=== PATIENT | female | born 1955 | race Caucasian/White ===

== ENCOUNTER 2018-10-23 06:16 | Inpatient (IN) ==
--- NOTE | 2018-10-05 09:12 | Anesthesiology Consultation ---
Date of Service October 05, 2018 Assessment & Plan (1) Encounter for pre-operative examination: Chart Review Chart Review: Acceptable Risk for Surgery and Patient seen in Pre Admission Testing Consults Requested none Teaching & Discussion Pre-Anesthesia Teaching/Discussion Notes: Instructed NPO after midnight before surgery, except medications with 15 cc of water. Medication instructions provided according to the PAT guidelines. History Surgery Operation Date: 10/23/18 12:30 Proposed Procedures p Right Total Hip Arthroplasty - Kam Lopez MD Height/Weight Height: 5 ft 7 in Weight: 69.2 kg Allergies Allergy/AdvReac Type Severity Reaction Status Date / Time codeine AdvReac unknown - Verified 09/28/18 11:41 as child Medications Home Medications Medication Instructions Recorded Confirmed Last Taken albuterol sulfate [Ventolin HFA] 2 puff INHALATION Q6H PRN 09/28/18 09/28/18 Unknown anastrozole 1 mg PO QAM 09/28/18 09/28/18 Unknown calcium carbonate-vitamin D3 1 cap PO QAM 09/28/18 09/28/18 Unknown [Calcium 600 + D(3)] Past Medical History Medical History HX: breast cancer left - had radiation 2011 History of hysterectomy Non-allergic rhinitis Osteoarthritis Exercise / Class Metabolic Activity II 4-5 Yardwork/Stairs/Walk up hill (Able to climb FOS with some difficulty. D enies CP or SOB. ) Past Family History Family History Mother Family history of diabetes mellitus Past Surgical History Surgical History History of appendectomy History of bunionectomy of left great toe History of colonoscopy History of lumpectomy of left breast Hx of cholecystectomy Hx of shoulder surgery to remove lump that was growing Hx of tonsillectomy Nausea and vomiting after administration of anesthetic agent Past Anesthesia History No Hx of Anesthesia Complications and No Family Hx of Anesthesia Complications History of PONV History of PONV and Hx of Motion Sickness Social History Smoking Status: Never smoker Do You Dip or Chew Tobacco: No Hx Alcohol Use: No Hx Substance Use: No Review of Systems Patient denies chest pain, shortness of breath, dyspnea on exertion, reflux, cough, wheezing, palpitations. +Joint Pain (Hip, Knees) +Wheezing (occasionally - thought to be secondary to damage from radiation) Physical Exam Vital Signs BP: 108/72 P: 74 R: 16 T: 98.1 SPO2: 96% on RA ENMT Thyromental Distance: > or= 3.5 Finger Breadths (3.5) Mallampati Class: I Neck normal visual inspection, trachea midline and + limited neck extension (mild limitation) Respiratory normal respiratory effort Auscultation: lungs clear to auscultation bilaterally Cardiovascular Rate/Rhythm: regular rate and regular rhythm Heart Sounds: no murmur Vessels: no carotid bruit Neurologic moves all extremities Psychiatric Orientation: alert and oriented x 3 Testing Laboratory Results 10/05/18 09:45 10/05/18 09:45 PT 11.2 Seconds (9.0-12.0) 10/05/18 09:45 INR 1.1 (0.9-1.1) 10/05/18 09:45 APTT 35.1 Seconds (21.0-31.0) H 10/05/18 09:45 Blood Type A Positive 10/05/18 09:45 Antibody Screen NEGATIVE 10/05/18 09:45 Electrocardiogram Date: 10/05/18 Findings: + NSR @ (61) Chest X-Ray Date: 10/05/18 Findings: + NAD
--- NOTE | 2018-10-05 09:16 | PAT Medication Instructions ---
Medication Instructions Date of Service October 05, 2018 Home Medications albuterol sulfate [Ventolin HFA] 2 puff INHALATION Q6H NEEDED anastrozole 1 mg PO QAM calcium carbonate-vitamin D3 [Calcium 600 + D(3)] 1 cap PO QAM DO NOT take the morning of surgery calcium carbonate-vitamin D3 [Calcium 600 + D(3)] 1 cap PO QAM Take morning of surgery With a small sip of water, OTHERWISE NOTHING TO EAT OR DRINK AFTER MIDNIGHT: albuterol sulfate [Ventolin HFA] 2 puff INHALATION Q6H NEEDED (if needed; bring to hospital) anastrozole 1 mg PO QAM Take evening before surgery albuterol sulfate [Ventolin HFA] 2 puff INHALATION Q6H NEEDED (if needed) Other Notes If you have any questions please call us at [phone] or [phone] or [phone] or [phone]
--- NOTE | 2018-10-05 10:04 | XRay Report ---
XR chest Pre-admission PA/Lat CLINICAL HISTORY: pat preoperative evaluation COMPARISON STUDY: No previous studies for comparison. FINDINGS: The bones soft tissues and hemidiaphragms are normal. The cardiomediastinal silhouette is n ormal. The lungs are clear. The pulmonary vasculature is normal. IMPRESSION: Negative chest. The above report was generated using voice recognition software. It may contain grammatical, syntax or spelling errors. Electronically signed by: Terry Sims M.D. 10/05/2018 10:03 AM
[2018-10-05 11:17] LABS: Basophils # (auto) 0.01 K/uL (0-0.2); Basophils % (auto) 0.2 %; Eosinophils # (auto) 0.39 K/uL (0-0.5); Eosinophils % (auto) 6.8 %; Hematocrit (blood only) 41.4 % (37-47); Hemoglobin 13.2 g/dL (12.0-16.0); Lymphocytes # (auto) 1.62 K/uL (1.2-3.4); Lymphocytes % (auto) 28.2 %; Mean Corpuscular Hgb Conc 31.9 g/dL (32-36); Mean Corpuscular Volume 91.8 fL (80-100); Mean Platelet Volume 10.9 fL (7.4-10.4); Monocytes % (auto) 5.2 %; Neutrophils # (auto) 3.42 K/uL (1.4-6.5); Neutrophils % (auto) 59.6 %; Platelet Count 204 K/uL (130-400); RDW Coefficient of Variation 12.8 % (11.5-14.5); RDW Standard Deviation 43.3 fL (36.4-46.3); Red Blood Count 4.51 M/uL (4.2-5.4); White Blood Count 5.74 K/uL (4.8-10.8)
[2018-10-05 11:29] LABS: INR 1.1 (0.9-1.1); Partial Thromboplastin Ratio 1.3; Partial Thromboplastin Time 35.1 Seconds (21.0-31.0); Prothrombin Time 11.2 Seconds (9.0-12.0)
[2018-10-05 12:37] LABS: BUN Creatinine Ratio 19.6 (10-20); Calcium 9.5 mg/dl (8.5-10.1); Creatinine Clr Calc Pharmacy 85.9 ml/min; Est GFR (African American) 109.7; Est GFR (Non-African American) 94.7; Potassium 4.5 mmol/L (3.5-5.1)
--- NOTE | 2018-10-14 17:41 | History and Physical Report ---
DATE OF ADMISSION: 10/23/2018 CHIEF COMPLAINT: Persistent right hip pain and discomfort. HISTORY OF PRESENT ILLNESS: A 63-year-old female who presents for followup and treatment of her right hip disease. She continues to be bothered by right hip pain and discomfort. She had an intraarticular hip joint injection which helped her for a couple weeks. She describes mostly groin pain. She has difficulty putting her shoes and socks on. She has difficulty walking any long distance. She limps more she walks. She has nighttime pain. No radicular symptoms. She now would like to proceed with surgical treatment. PAST MEDICAL HISTORY: Significant for: 1. Breast cancer, currently in remission. 2. Arthritis. PAST SURGICAL HISTORY: Previous surgeries include: 1. Tonsillectomy. 2. Heart catheterization. 3. Appendectomy. 4. Lumpectomy. 5. Hysterectomy. ALLERGIES: CODEINE, REACTION UNKNOWN. CURRENT MEDICATIONS: Include: 1. Anastrozole for breast cancer. 2. Calcium. 3. Unspecified med 4. Aleve. SOCIAL HISTORY: A 63-year-old female. She is . Does not smoke. No significant alcohol intake. FAMILY HISTORY: Noncontributory. REVIEW OF SYSTEMS: Negative for diabetes, neurologic problem, vascular problem, bleeding disorders. No chest pain or shortness of breath. No signs of DVT or PE. No known bleeding problems. PHYSICAL EXAMINATION: GENERAL: Reveals a healthy, pleasant middle-aged female. Looks to be in good health. HEENT: Benign. NECK: Supple, no lymphadenopathy. LUNGS: Clear to auscultation. HEART: Has a regular rate and rhythm. ABDOMEN: Soft, nontender, nondistended. EXTREMITIES: Grossly neurovascularly intact except as follows. Examination of the right hip reveals the patient walks with a slight bit of a limp. Leg lengths clinically appear pretty equal. She does have significant pain with any type of hip motion. I can internally rotate to about neutral which causes pain. External rotation to 30 degrees. She does have slight varus alignment to her knee with some tenderness over the medial joint line. No knee effusion. She is neurologically intact. Negative straight leg raise. X-RAYS: X-rays of the right hip reviewed. It shows advanced right hip DJD. She has got narrowing of her joint space. It has progressed significantly since her previous films. She has got osteophytes around the femoral head and a little bit of chondrocalcinosis. ASSESSMENT: A 63-year-old female with right hip pain and degenerative joint disease. Temporary response to injection. She would like to proceed with definitive treatment. PLAN: We will take her to the Operating Room and do right total hip replacement. The risks and benefits of this procedure were explained to the patient including but not limited to DVT, PE, , infection, neurological injury, vascular injury, bleeding problem, pain, limited range of motion, stiffness, failure to relieve symptoms, incomplete relief of symptoms, need for further surgery in future, fracture, leg length inequality, nerve palsy, etc. The patient understands and desires to proceed. Informed consent was obtained. As far as discharge plans, she will likely be discharged to home with some home health. We will plan DVT prophylaxis including thigh-high TEDs, SCDs, and aspirin twice a day. MTDD
[~2018-10-23 06:16] MED LIST: ACETAMINOPHEN 500 MG TAB PO SCH; CEFAZOLIN 2000MG 2,000 MG/15 ML SYR IV SCH; FAMOTIDINE 20 MG TAB PO SCH; GABAPENTIN 600 MG DOSE PO SCH; LR 500ML BOLUS IV SCH; LR 500ML BOLUS, THEN 15ML/HR IV SCH; LR 60ML/HR IV SCH; METOCLOPRAMIDE HCL 10 MG TABLET PO SCH; SCOPOLAMINE 1.5 MG TDSY TD SCH; TRANEXAMIC ACID 1,000 MG **IV Pre-op IV SCH
[2018-10-23] MEDS ORDERED: MIDAZOLAM HCL 1 MG/ML 2ML VIAL ONE ×2 (06:34→09:12)
[2018-10-23] MEDS ORDERED: fentaNYL citrate 100 MCG/2 ML VIAL ONE (06:34)
--- NOTE | 2018-10-23 06:44 | History & Physical Bridge Note ---
Date of Service October 23, 2018 History & Physical Bridge Note I have examined the patient, reviewed the History & Physical and in the interval since the performance of the History & Physical I have noted the following changes of clinical significance: no changes noted
[2018-10-23] MEDS ORDERED: BUPIVACAINE 0.5 % 5 MG/1 ML PF 10ML VIAL ONE (07:18)
[2018-10-23] MEDS ORDERED: MoRPHine SULFATE PF 1 MG/ML 10 ML AMP/VIAL ONE (07:33)
[2018-10-23] MEDS ORDERED: ONDANSETRON INJ 2 MG/ML 2 ML VIAL ONE (07:35)
[2018-10-23] MEDS ORDERED: LIDOCAINE HCL 2% 2 ML VIAL/AMP(20MG/ML) INFIL ONE (07:35)
[2018-10-23] MEDS ORDERED: PROPOFOL IV EMULSION 10 MG/ML 20 ML VIAL IV ONE (07:35)
[2018-10-23] MEDS ORDERED: EPINEPHrine INJ 1 MG/ML AMP ONE (08:47)
[2018-10-23] MEDS ORDERED: BACITRACIN INJ 50,000 UNIT VIAL ONE (08:47)
[2018-10-23] MEDS ORDERED: BUPIVACAINE 0.25% 30 ML VIAL ONE (08:47)
[2018-10-23] MEDS ORDERED: BUPIVACAINE/EPINEPHRINE 0.5% MPF 1:200,000 30 ML VIAL ONE (08:48)
[2018-10-23] MEDS ORDERED: ePHEDrine sulfate 50 MG/ML AMP IV PRN (08:53)
[2018-10-23] MEDS ORDERED: DiphenhydrAMINE HCL 50 MG/ML VIAL IV PRN (08:53)
[2018-10-23] MEDS ORDERED: PROMETHAZINE HCL 12.5 MG in SODIUM CHLORIDE 0.9% 50 ML IV PRN (08:53)
[2018-10-23] MEDS ORDERED: NALOXONE HCL 1 MG in SODIUM CHLORIDE 0.9% 1000ML 1,000 ML IV PRN (08:53)
[2018-10-23] MEDS ORDERED: MoRPHine SULFATE PF 1 MG/ML 10 ML AMP/VIAL INT SPINAL ONE (08:53)
[2018-10-23] MEDS ORDERED: LACTATED RINGER'S 500 ML IV PRN (08:53)
[2018-10-23] MEDS ORDERED: NALOXONE HCL 0.08 MG in SYRINGE 1.8 ML IV PRN (08:53)
[2018-10-23] MEDS ORDERED: NALBUPHINE HCL INJ 10 MG/ML AMP IV PRN (08:53)
[2018-10-23] MEDS ORDERED: MEPERIDINE HCL 25 MG/ML CARP IV PRN (08:53)
[2018-10-23] MEDS ORDERED: ONDANSETRON INJ 2 MG/ML 2 ML VIAL IV PRN ×2 (08:53→12:15)
[2018-10-23] MEDS ORDERED: NALOXONE HCL 0.4 MG/1 ML VIAL/CARP IV PRN ×2 (08:53→12:15)
[2018-10-23] MEDS ORDERED: KETOROLAC 30 MG/ML VIAL IV PRN (08:53)
[2018-10-23] MEDS ORDERED: DC INTRASPINAL MORPHINE SCH (09:00)
[2018-10-23] MEDS ORDERED: SODIUM CHLORIDE 0.9% 1000ML 1,000 ML IV SCH (09:00)
[2018-10-23] MEDS ORDERED: NO NARCOTICS OR SEDATIVES SCH (09:00)
[2018-10-23] MEDS ORDERED: PHENYLEPHRINE 100MCG/ML 5ML SYR ONE (09:44)
[2018-10-23] MEDS ORDERED: ePHEDrine sulfate 50 MG/ML SYR ONE (09:45)
[2018-10-23] MEDS ORDERED: PHENYLEPHRINE HCL 10 MG/ML VIAL ONE (10:06)
--- NOTE | 2018-10-23 11:24 | Anesthesiology Progress Note ---
Date of Service October 23, 2018 Anesthesia Post Procedure Vital Signs Vital Signs: Temp Pulse Pulse Resp BP Pulse Ox 10/23/18 11:20 36.6 C 94 H 16 108/57 L 96 10/23/18 11:10 88 16 107/62 96 10/23/18 11:00 83 16 101/57 L 100 10/23/18 10:50 86 16 104/56 L 100 10/23/18 10:42 36.6 C 85 16 113/56 L 96 10/23/18 06:50 36.8 C 83 18 139/82 96 Pain Intensity Right Hip: Pain Intensity: 5 Transfer of Care Handoff Completed per policy Notes Mental Status: alert / awake / arousable Patient Amnestic to Procedure: Yes Nausea / Vomiting: adequately controlled Pain: adequately controlled Airway Patency, RR, SpO2: stable & adequate BP & HR: stable & adequate Hydration State: stable & adequate Neuraxial Anesthesia: was administered and sensory block is resolving Anesthetic Complications: no major complications apparent
--- NOTE | 2018-10-23 11:30 | XRay Report ---
XR hip 1V RT w pelvis CLINICAL HISTORY: post-op postoperative evaluation COMPARISON: None. DISCUSSION: Anatomic alignment posttotal right hip arthroplasty. Could contact between prosthetic and underlying bone. There are expected soft tissue postoperative changes. IMPRESSION: Anatomic alignment posttotal right hip arthroplasty. The above report was generated using voice recognition software. It may contain grammatical, syntax or spelling errors. Electronically signed by: Terry Sims M.D. 10/23/2018 11:28 AM
[2018-10-23] MEDS ORDERED: ALBUTEROL HFA 8 GM INHALER INH PRN ×2 (12:15→21:29)
[2018-10-23] MEDS ORDERED: ALUMINUM/MAGNESIUM SUSP 30 ML UDC PO PRN (12:15)
[2018-10-23] MEDS ORDERED: MAGNESIUM HYDROXIDE SUSP 30 ML UDC PO PRN (12:15)
[2018-10-23] MEDS ORDERED: BISACODYL 10 MG SUPP PR PRN (12:15)
[2018-10-23] MEDS ORDERED: METOCLOPRAMIDE HCL INJ 5 MG/ML 2 ML VIAL IV PRN (12:15)
[2018-10-23] MEDS ORDERED: KETOROLAC 30 MG/ML VIAL IV SCH (12:45)
[2018-10-23] MEDS: ACETAMINOPHEN 500 MG TAB PO SCH ×2 (13:06→21:05)
[2018-10-23] MEDS: SODIUM CHLORIDE 0.9% 1000ML 1,000 ML IV SCH ×2 (13:06→23:56)
--- NOTE | 2018-10-23 14:07 | Post Operative Brief Note ---
PG Immediate Post Op with CF Date of Surgery October 23, 2018 Pre & Post Diagnosis Operation Date: 10/23/18 08:50 Pre-Op Diagnosis: RIGHT HIP DEGENERATIVE JOINT DISEASE Post-Op Diagnosis: RIGHT HIP DEGENERATIVE JOINT DISEASE Procedure Operation Date: 10/23/18 08:50 Actual Procedures p Right Total Hip Arthroplasty, Uncemented(Right) - Kam Lopez MD Surgeon Kam Lopez MD Overlay Plastician None Estimated Blood Loss 200 Findings Consistent with Post-Op Diagnosis Fluids 500 cc Specimens Specimen Description: A. Right femoral head Drains Stern Catheter Anesthesia Type Spinal MAC Complications none Disposition Accompanied Patient To Recovery: Yes Disposition: Recovery Room
[2018-10-23] MEDS: CHECK SCOPOLAMINE PATCH PLACEMENT SCH (15:18)
[2018-10-23] MEDS: CEFAZOLIN 1000MG 1,000 MG/7.5 ML SYR IV SCH (16:25)
[2018-10-23] MEDS: FERROUS GLUCONATE 324 MG TAB PO SCH (16:32)
[2018-10-23] MEDS ORDERED: TRANEXAMIC ACID 1,000 MG in 0.9 % SODIUM CHLORIDE 100 ML IV SCH (16:45)
[2018-10-23] MEDS ORDERED: SENNA 8.6 MG TAB PO SCH (21:00)
[2018-10-23] MEDS: DOCUSATE SODIUM 100 MG CAP PO SCH (21:03)
[2018-10-23] MEDS: ASPIRIN 81 MG ECTAB PO SCH (21:04)
[2018-10-24] MEDS: CHECK SCOPOLAMINE PATCH PLACEMENT SCH (01:05)
[2018-10-24] MEDS: CEFAZOLIN 1000MG 1,000 MG/7.5 ML SYR IV SCH (01:06)
[2018-10-24] MEDS ORDERED: HYDROmorphone INJ 0.5 MG/0.5 ML SYR IV PRN (02:56)
[2018-10-24] MEDS ORDERED: TRAMADOL HCL 50 MG TABLET PO PRN (02:56)
--- NOTE | 2018-10-24 03:06 | Operative Report ---
DATE OF OPERATION: 10/23/2018 DATE OF PROCEDURE: 10/23/2018 SURGEON: Kam Lopez MD TONGUE AND GROOVE MACHINE SETTER: None. PREOPERATIVE DIAGNOSIS: Right hip degenerative joint disease. POSTOPERATIVE DIAGNOSIS: Right hip degenerative joint disease. PROCEDURE PERFORMED: Right uncemented ceramic on highly cross-linked polyethylene total hip arthroplasty. COMPLICATIONS: None. ESTIMATED BLOOD LOSS: 200 mL. FLUID REPLACEMENT: 500 mL crystalloid fluid replacement. ANESTHESIA: Spinal. DRAINS: None. SPECIMENS: Right femoral head sent for pathology. OPERATIVE INDICATIONS: The patient is a 63-year-old fairly active female who has had about a year history of gradually increasing right hip pain and discomfort that has gotten worse despite conservative care. She had an intraarticular hip joint injection which provided her several weeks of very good relief. X-rays show progressive hip arthritis over the past year. She elected to proceed with right total hip arthroplasty. OPERATIVE FINDINGS: Operative findings were advanced right hip DJD. She had grade 4 [id number] disease of the left femoral head and acetabulum. She had a pretty significant anterior acetabular osteophyte. She had retroversion of the acetabulum. OPERATIVE IMPLANTS: Operative implants consisted of: 1. A Biomet G7 size 54 mm acetabular shell. 2. A 6.5 cancellous acetabular screws x2. 3. An apex hole eliminator. 4. The highly cross-linked polyethylene liner with 54 mm outer diameter and 36 mm inner diameter with a wall placed inferior and posterior. 5. DePuy Corail size 10 KLA femoral stem. 6. A +5/36 mm ceramic articular ball. OPERATIVE PROCEDURE: The patient was taken to the operating room, identified and placed on the operating table in supine position. All contact areas were appropriately padded. IV antibiotics were provided by anesthesia team. A spinal anesthetic had been implemented in the holding area. Stern catheter was placed in sterile fashion. The patient was then placed in the left lateral decubitus position. An axillary roll was placed. [facility] hip positioner was used for positioning. The right hip and leg were then prepped and draped in usual sterile fashion. A posterolateral approach to the right hip was then performed through a curvilinear incision, centered over the greater trochanter. Sharp dissection was carried through subcutaneous tissue down to the level of the IT band and gluteal fascia. The IT band and gluteal fascia were incised longitudinally in line with skin incision. The underlying greater trochanteric bursa was excised. The piriformis and external rotators were tagged and taken off the posterior aspect of the hip joint capsule. Great care was taken throughout the procedure to protect the sciatic nerve at all times. Posterior capsulotomy was then performed and the hip was internally rotated and dislocated. Femoral neck osteotomy cut was made with the final cut about 7 mm above the lesser trochanter. Femoral head was removed and sent for pathology. The femur was retracted anteriorly. Attention was then drawn to the acetabulum. The acetabular labrum was excised. The pulvinar fat was excised. Sequential reaming of the acetabulum was then performed beginning with a size of 47 and progressing up to 53. A 54 mm Biomet G7 acetabular shell was then placed in about 40 degrees of lateral opening and 20 degrees of anteversion. It was fixed with two 6.5 cancellous acetabular screws. Some anterior osteophytes were removed. A trial liner was placed. Attention was then drawn toward the femur. The proximal femur was entered with [employer] cutter followed by canal finder. I then broached beginning with a size 8 and progressing up to a 10. It got very good fit at 10 in the proximal dimensions, but fairly narrow, so we elected to stop there. Calcar reamer was used to smoothen off the calcar. I then trialed the hip with the +5 articular ball provided full stability and full extension and external rotation and flexion to 90 degrees, internal rotation to about 50 degrees. I did elect to place a peterson on the liner inferior and posterior to maximize her stability in flexion. I elected to place these implants. All trial implants were removed. An apex hole eliminator was placed. Highly cross-linked polyethylene liner with a high wall was then placed with the wall inferior and posteriorly. A DePuy Corail size 10 KLA stem with a +5/36 mm ceramic articular ball was placed. Hip was located and once again found to be stable. Attention was then drawn toward closing. The wound was irrigated with copious amounts of pulsatile lavage solution. I did inject locally with 60 mL of 0.5% Marcaine with epinephrine. The posterior capsule and external rotators were then repaired through drill holes and the posterior trochanter with #2 Ti-Cron suture. The IT band and gluteal fascia were then closed with #1 PDS suture in a running fashion and subcutaneous tissue was then closed with #2 Dexon suture in a buried interrupted fashion. Skin was closed with skin carla. Leg was then cleaned, dried and a sterile dressing of Xeroform, 4 x 4, sterile ABD pad and foam tape was applied. The patient then transferred to the recovery room in stable condition. The patient tolerated the procedure well with no complications. All needle and sponge counts were correct at the end of the operation. I attest to the content of the Intraoperative Record and any orders documented therein. Any exceptions are noted below. MTDD
[2018-10-24] MEDS: ACETAMINOPHEN 500 MG TAB PO SCH (06:07)
[2018-10-24] MEDS: KETOROLAC 30 MG/ML VIAL IV SCH ×2 (06:07→11:43)
[2018-10-24 06:27] LABS: Basophils # (auto) 0.01 K/uL (0-0.2); Basophils % (auto) 0.2 %; Eosinophils # (auto) 0.34 K/uL (0-0.5); Eosinophils % (auto) 5.2 %; Hematocrit (blood only) 32.6 % (37-47); Hemoglobin 10.4 g/dL (12.0-16.0); Immature Granulocytes # (auto) 0.01 K/uL (0.00-0.02); Immature Granulocytes % (auto) 0.2 %; Lymphocytes # (auto) 0.71 K/uL (1.2-3.4); Lymphocytes % (auto) 10.8 %; Mean Corpuscular Hgb Conc 31.9 g/dL (32-36); Mean Corpuscular Volume 89.6 fL (80-100); Mean Platelet Volume 10.3 fL (7.4-10.4); Monocytes # (auto) 0.41 K/uL (0.11-0.59); Monocytes % (auto) 6.2 %; Neutrophils # (auto) 5.09 K/uL (1.4-6.5); Neutrophils % (auto) 77.4 %; Platelet Count 139 K/uL (130-400); RDW Standard Deviation 42.8 fL (36.4-46.3); Red Blood Count 3.64 M/uL (4.2-5.4); White Blood Count 6.57 K/uL (4.8-10.8)
[2018-10-24 07:03] LABS: Calcium 8.4 mg/dl (8.5-10.1); Creatinine Clr Calc Pharmacy 94.5 ml/min; Est GFR (African American) 113.2; Est GFR (Non-African American) 97.7; Potassium 4.2 mmol/L (3.5-5.1)
[2018-10-24] MEDS ORDERED: CALCIUM 600MG + VIT D 400 IU TAB PO SCH (09:00)
[2018-10-24] MEDS ORDERED: ANASTROZOLE 1 MG TAB PO SCH (09:00)
[2018-10-24] MEDS ORDERED: MULTIVITAMIN TAB PO SCH (09:00)
[2018-10-24] MEDS: ASPIRIN 81 MG ECTAB PO SCH (09:01)
--- NOTE | 2018-10-24 09:01 | Progress Note ---
DATE: 10/24/2018 SUBJECTIVE: A 63-year-old white female postop day 1 from right hip replacement. She is doing pretty well. Had a pretty good night. Really in not much pain. No chest pain or shortness of breath. Not feeling dizzy or lightheaded. OBJECTIVE: VITAL SIGNS: Temperature 36.7. Vital signs stable. GENERAL: Reveals a pleasant, middle-aged female. She is lying in bed, looks pretty comfortable. EXTREMITIES: Examination of the right hip reveals the leg to be well aligned. Leg lengths were equal. Hip is located. Thigh is soft and supple. Dressing is clean, dry and intact. She can dorsiflex and plantarflex her foot appropriately. LABORATORY DATA: Hemoglobin 10.4. Hematocrit 32.6. Electrolytes are stable. ASSESSMENT: A 63-year-old white female postop day 1 from right hip replacement, doing pretty well. Pain seems to be controlled. She is neurologically intact. Hip is located. PLAN: 1. DVT prophylaxis including thigh-high TEDs, SCDs and aspirin twice a day. 2. PT/OT. Weight bear as tolerated. Right total hip protocol. 3. Pain control, doing well with current pain regimen. 4. Anemia. Fairly mild anemia. Asymptomatic. We will continue iron supplementation. This is all just related to surgical and blood loss. 5. Disposition. Plan to discharge to home with home health once adequately recovered. We will see how she does in therapy today.
[2018-10-24] MEDS: DOCUSATE SODIUM 100 MG CAP PO SCH (09:02)
[2018-10-24] MEDS: FERROUS GLUCONATE 324 MG TAB PO SCH (09:02)
--- NOTE | 2018-10-28 15:46 | Discharge Summary ---
ADMITTING PHYSICIAN AND SURGEON: Dr. Kam Lopez. ADMITTING DIAGNOSIS: Right hip degenerative joint disease. SURGERY PERFORMED: Right total hip arthroplasty. SECONDARY DIAGNOSES: Breast cancer and arthritis. CONSULTS: None obtained. HISTORY AND PHYSICAL EXAMINATION: Well documented in the patient's chart. HOSPITAL COURSE: The patient was admitted on 10/23/2018 underwent total hip arthroplasty, tolerated the procedure well. There were no complications. She was transferred to the PACU postoperatively and later to the orthopedic floor for further care. She was given Ancef for antibiotic prophylaxis, BETSY stockings, SCDs and aspirin for DVT prophylaxis. Hemoglobin, hematocrit and vital signs were monitored during her hospital stay and remained stable. She did not require any blood transfusions. There were no complications. By postoperative day 1, she was tolerating a regular diet, pain was controlled with oral pain medicine. She was participating in physical therapy. On postop day 1, she was discharged home, set up with home health services. She was given printed discharge instructions including new prescriptions for Tylenol, aspirin, iron supplement and tramadol. Continue her home medicines. Continue physical therapy, weightbearing as tolerated, BETSY stockings, total hip precautions. Follow up approximately 2 weeks postop or sooner if there are any problems or concerns.
== END 2018-10-24 14:08 | disposition home health service (06) | DRG 470 ==
LOC: ASU 06:16 → 3E 10:47

== ENCOUNTER 2022-04-03 09:44 | Observation (INO) ==
--- NOTE | 2022-03-06 10:54 | PAT Medication Instructions ---
Medication Instructions Date of Service March 06, 2022 Home Medications Medication Instructions Recorded albuterol sulfate 90 mcg/actuation 2 puff inhalation Q6H PRN 02/17/19 aerosol inhaler (Ventolin HFA) Shortness Of Breath #3 ea amoxicillin 500 mg tablet 2,000 mg PO ONCE #4 tabs 01/04/21 fluticasone 100 mcg-salmeterol 50 1 inh inhalation BID #60 ea 01/16/22 mcg/dose blistr powdr for inhalation (Wixela Inhub) oseltamivir 75 mg capsule 75 mg PO BID 5 days #10 caps 02/28/22 prednisone 10 mg tablet 10 mg PO .COMPLEX 10 days #30 tabs 02/28/22 calcium carbonate 600 mg-vitamin D3 5 mcg (200 unit) capsule (Calcium 600 + D(3)) 1 cap PO QAM albuterol sulfate 90 mcg/actuation aerosol inhaler (Ventolin HFA) 2 puff inhalation Q6H PRN Shortness Of Breath amoxicillin 500 mg tablet 2,000 mg PO ONCE fluticasone 100 mcg-salmeterol 50 mcg/dose blistr powdr for inhalation (Wixela Inhub) 1 inh inhalation BID oseltamivir 75 mg capsule 75 mg PO BID 5 days prednisone 10 mg tablet 10 mg PO .COMPLEX 10 days Continue as directed amoxicillin 500 mg tablet 2,000 mg PO ONCE oseltamivir 75 mg capsule 75 mg PO BID 5 days prednisone 10 mg tablet 10 mg PO .COMPLEX 10 days DO NOT take the morning of surgery calcium carbonate 600 mg-vitamin D3 5 mcg (200 unit) capsule (Calcium 600 + D(3)) 1 cap PO QAM Take morning of surgery With a small sip of water, OTHERWISE NOTHING TO EAT OR DRINK AFTER MIDNIGHT: albuterol sulfate 90 mcg/actuation aerosol inhaler (Ventolin HFA) 2 puff inhalation Q6H PRN Shortness Of Breath (use if needed; please bring rescue inhaler with you to hospital day of surgery if possible) fluticasone 100 mcg-salmeterol 50 mcg/dose blistr powdr for inhalation (Wixela Inhub) 1 inh inhalation BID Take evening before surgery albuterol sulfate 90 mcg/actuation aerosol inhaler (Ventolin HFA) 2 puff inhalation Q6H PRN Shortness Of Breath (if needed) fluticasone 100 mcg-salmeterol 50 mcg/dose blistr powdr for inhalation (Wixela Inhub) 1 inh inhalation BID Other Notes If you have any questions please call us at [phone] or [phone] or [phone] or [phone]
--- NOTE | 2022-03-12 14:23 | Anesthesiology Consultation ---
Date of Service March 12, 2022 Assessment & Plan (1) Encounter for pre-operative examination: Chart Review Chart Review: Acceptable Risk for Surgery and Patient NOT seen in Pre Admission Testing Pt currently scheduled as 23 hours observation. If surgeon decides to change patient to Same Day Joint, patient would be acceptable risk for TONY, pending patient is motivated, has good support and surgeon's office completes [facility] Program preop requirements. Per PAT appt on 03/12/22, patient diagnosed with the flu on 02/28/22. Did not have Covid testing- Preop Covid testing done at [facility] appt 03/12/22= negative. Pt is vaccinated for Covid. Educated on importance of using Covid precautions one week prior to surgery Pt seen by PCP 01/08/22= seen for annual exam. Mild asthma under good control. Allergies under fair control. History of left breast cancer- off anastrozole. " For the left osteoarthritis there are no contraindications to proceed with surgery." Pt later seen by PCP 02/28/22= seen for influenza A- started on Tamiflu. Started on Prednisone due to asthma aggravated by flu. (Pt feeling better as of PAT appt 03/12/22) History Surgery Operation Date: 04/03/22 08:50 Proposed Procedures p Left Total Hip Arthroplasty - Kam Lopez MD Height/Weight Height: 5 ft 7 in Weight: 76.7 kg Allergies Allergy/AdvReac Type Severity Reaction Status Date / Time adhesive tape Allergy Mild IRRITATES Verified 03/01/22 09:33 SKIN>THE OLD TAPE codeine Allergy Unknown unknown - Verified 03/01/22 09:33 as child Medications Home Medications Medication Instructions Recorded Confirmed Last Taken calcium carbonate 600 mg-vitamin 1 cap PO QAM 09/28/18 03/01/22 10/22/18 08:00 D3 5 mcg (200 unit) capsule (Calcium 600 + D(3)) albuterol sulfate 90 mcg/actuation 2 puff inhalation Q6H PRN 02/17/19 03/01/22 Unknown aerosol inhaler (Ventolin HFA) Shortness Of Breath #3 ea amoxicillin 500 mg tablet 2,000 mg PO ONCE #4 tabs 01/04/21 03/01/22 Unknown fluticasone 100 mcg-salmeterol 50 1 inh inhalation BID #60 ea 01/16/22 03/01/22 Unknown mcg/dose blistr powdr for inhalation (Yaneli Carsonub) Past Medical History Medical History (Updated 03/13/22 @ 09:18 by Sadie Daniel PA-C) Asthma, mild intermittent Uses rescue inhaler only occasionally (more so when sick) Benign essential tremor MILD>HANDS History of kidney stones NO SURGERY REQUIRED No recent issues History of left heart catheterization During childhood (5th grade) secondary to murmur (murmur resolved) No murmur noted at PAT 03/12/22 HX: breast cancer left - had radiation 2011 Influenza A DX 02/28/22>SYMPTOMS STARTED 02/25/22 Non-allergic rhinitis Exercise / Class Metabolic Activity II 4-5 Yardwork/Stairs/Walk up hill (one flight of stairs - no chest pain or SOB ) Past Family History Family History Mother Family history of diabetes mellitus Breast cancer Thyroid disease Father Heart disease Asthma Other No family history of adverse response to anesthesia Past Surgical History Surgical History History of appendectomy History of bunionectomy of left great toe History of colonoscopy History of hysterectomy History of lumpectomy of left breast History of right hip replacement Hx of cholecystectomy Hx of shoulder surgery to remove lump that was growing Hx of tonsillectomy Nausea and vomiting after administration of anesthetic agent Past Anesthesia History No Hx of Anesthesia Complications (with exception to PONV ) and No Family Hx of Anesthesia Complications History of PONV History of PONV (Severe - pt requesting scopolamine patch ) and Hx of Motion Sickness Social History Smoking Status: Never smoker Hx Alcohol Use: No Hx Substance Use: No substance use type: does not use Review of Systems Occ, intermittent snoring - no hx of witnessed apnea - no hx of sleep study Patient denies chest pain, shortness of breath, dyspnea on exertion, reflux, cough, wheezing, palpitations. No hx of seizures, stroke, IN. No hx of blood clots or blood transfusions Physical Exam Vital Signs VITALS BP 119/75 P 99 TEMP 98.7 SP02 95% RESP 16 Constitutional no acute distress ENMT Mouth: no TMJ clicking Thyromental Distance: < 3.5 Finger Breadths (3.0) Mallampati Class: I Missing molars Neck + limited neck extension Respiratory normal respiratory effort; no respiratory distress Auscultation: lungs clear to auscultation bilaterally; no wheezes Cardiovascular Rate/Rhythm: regular rate and regular rhythm Heart Sounds: no murmur Vessels: no carotid bruit Musculoskeletal Spine: no pain with cervical ROM Extremities: extremities normal to inspection Psychiatric Orientation: alert Lab Results Anesthesia Preop Results Results Anesthesia Widget: WBC 6.15 K/ul (4.8-10.8) 03/12/22 Hgb 12.7 g/dl (12.0-16.0) 03/12/22 Hct 38.8 % (34.1-44.9) 03/12/22 Plt 297 K/uL (130-400) 03/12/22 Na 140 mmol/L (136-145) 03/12/22 K 3.7 mmol/L (3.5-5.1) 03/12/22 Cl 105 mmol/L (98-107) 03/12/22 CO2 27 mmol/L (21-32) 03/12/22 BUN 16 mg/dl (6-23) 03/12/22 Creat 0.68 mg/dl (0.6-1.2) 03/12/22 Glucose Level 126 mg/dl (70-99(Fasting)) H 03/12/22 PT 11.2 Seconds (9.0-12.0) 03/12/22 PTT 32.8 Seconds (21.0-31.0) H 03/12/22 INR 1.1 (0.9-1.1) 03/12/22 Blood Type A Positive 03/12/22 Antibody Screen NEGATIVE 03/12/22 Testing Electrocardiogram Date: 01/08/22 SR at 79bpm No change compared to EKG of 04/15/19 per confirming provider Chest X-Ray Date: 03/12/22 Findings: + NAD Stress Test Date: 05/05/19 Type: exercise (ECHO ) Resting EF: 63% Valvular Disease: no significant valvular disease Exercise echocardiographic examination is normal without resting LV wall motion abnormalities or inducible ischemia. MPHR 113%. 6.4 METS achieved. Stress EKG response was normal. COVID-19 Risk Screen Screening Information COVID-19 Screen Date: 03/12/22 Exposure 21 Days Family/Household +COVID Last 21 Days: No Exposure 10 Days Any COVID Exposure Last 10 Days: No Symptoms Last 10 Days Experienced COVID Sx Last 10 Days: Yes Sx Experienced Last 10 Days: Congestion/Runny Nose Were You Tested for COVID: No + COVID 0-90 Days COVID + in Last 0-90 Days: No COVID Testing Site COVID-19 Preop/Pre-Procedure Testing Site: [facility] (03/12/22= negative ) Risk Plan COVID Risk Plan: Last 10D CoV Sx (Preop Covid testing done at [facility] on 03/12/22) Patient Education COVID Preop Screening Education Complete: Yes
--- NOTE | 2022-03-29 17:52 | History and Physical Report ---
CHIEF COMPLAINT: Left hip pain. HISTORY OF PRESENT ILLNESS: A 66-year-old female well known to me from previous right hip replacemen t done in 10/2018. The right hip has done great. Over the past year, she developed increased pain a nd discomfort in left hip. She describes groin pain, thigh pain, lateral hip pain, very similar to t he other side. She has difficulty putting her shoes and socks on. Hip has become more stiff over ti me. She limps more as the day goes on. She would like to have her left hip replaced. PAST MEDICAL HISTORY: Significant for: 1. Asthma. 2. Osteoarthritis. 3. Breast cancer, status post treatment without recurrence. PAST SURGICAL HISTORY: Includes: 1. Hysterectomy. 2. Right total hip replacement done on 10/23/2018. ALLERGIES: None. CURRENT MEDICATIONS: Include Dulera twice a day. SOCIAL HISTORY: A 66-year-old female. She is . Lives in [place]. Fairly active. Does no t smoke. FAMILY HISTORY: Noncontributory. REVIEW OF SYSTEMS: Negative for diabetes, neurologic problem, vascular problem, or bleeding disorder s. No chest pain or shortness of breath. No history of DVT or PE. No known bleeding problems. PHYSICAL EXAMINATION: GENERAL: Shows a pleasant middle-aged female. Looks in good health. HEENT: Benign. NECK: Supple. No lymphadenopathy. LUNGS: Clear to auscultation. HEART: Regular rate and rhythm. ABDOMEN: Soft, nontender, nondistended. EXTREMITIES: Grossly neurovascularly intact except as follows: Examination of the left leg reveals the patient walks with just a slight bit of a limp. She has abou t 0.5 cm short on the left side compared to right. She does have a very stiff hip with internal rota tion to neutral. This does recreate her pain. Negative straight leg raise. X-RAYS: X-rays of left hip were reviewed. It shows moderate to advanced left hip arthritis. She gonzalez s got still a little bit of joint space remaining, but fairly concentric loss of joint space. She gonzalez s got some slight osteophyte formation and some cystic changes as well on both sides of the joint. ASSESSMENT: A 66-year-old female status post right hip replacement pain in the past with progressive left hip pain and discomfort. She would like to have her left hip replaced. PLAN: We will take her to the operating room and do left total hip replacement. The risks and benef its of this procedure were explained to the patient including but not limited to DVT, PE, , infe ction, neurological injury, vascular injury, bleeding problem, pain, limited range of motion, stiffne ss, failure to relieve her symptoms, fracture, dislocation, leg length inequality, etc. The patient understands and desires to proceed. Informed consent was obtained. Job ID: [id number]
[~2022-04-03 09:44] MED LIST changes: +BUPIVACAINE 0.5 % 5 MG/1 ML PF 10ML VIAL ONE; -CEFAZOLIN 2000MG 2,000 MG/15 ML SYR IV SCH; +CeleBREX 200 MG CAP PO SCH; -GABAPENTIN 600 MG DOSE PO SCH; -LR 500ML BOLUS IV SCH; -SCOPOLAMINE 1.5 MG TDSY TD SCH; +Scopolamine 1 MG TDSY TD SCH; +ceFAZolin 2000MG 2,000 MG/15 ML SYR IV SCH
--- NOTE | 2022-04-03 10:59 | History & Physical Bridge Note ---
Date of Service April 03, 2022 History & Physical Bridge Note I have examined the patient, reviewed the History & Physical and in the interval since the performance of the History & Physical I have noted the following changes of clinical significance: no changes noted
[2022-04-03] MEDS ORDERED: MIDAZOLAM HCL 1 MG/ML 2ML VIAL ONE ×2 (12:10)
[2022-04-03] MEDS ORDERED: PROPOFOL IV EMULSION 10 MG/ML 20 ML VIAL IV ONE (12:17)
[2022-04-03] MEDS ORDERED: BUPIVACAINE/EPINEPHRINE 0.5% MPF 1:200,000 30 ML VIAL ONE (13:04)
[2022-04-03] MEDS ORDERED: ONDANSETRON INJ 2 MG/ML 2 ML VIAL IV PRN ×2 (13:30→16:53)
[2022-04-03] MEDS ORDERED: ATROPINE SULFATE 0.1 MG/ML 10ML SYR IV PRN (13:30)
[2022-04-03] MEDS ORDERED: PROMETHAZINE HCL 12.5 MG in SODIUM CHLORIDE 0.9% 50 ML IV PRN (13:30)
[2022-04-03] MEDS ORDERED: ePHEDrine sulfate 50 MG/ML AMP IV PRN (13:30)
[2022-04-03] MEDS ORDERED: HYDROmorphone INJ 2 MG/ML SYR/VIAL IV PRN (13:30)
[2022-04-03] MEDS ORDERED: fentaNYL citrate 100 MCG/2 ML VIAL IV PRN (13:30)
[2022-04-03] MEDS ORDERED: PHENYLEPHRINE HCL 10 MG/ML VIAL ONE (14:04)
[2022-04-03] MEDS ORDERED: LIDOCAINE 2% MPF LOCAL 5 ML VIAL INFIL ONE (14:04)
[2022-04-03] MEDS ORDERED: ePHEDrine sulfate 50 MG/ML SYR ONE (14:04)
--- NOTE | 2022-04-03 15:24 | Operative Report ---
PG Post Operative Report Pre & Post Diagnosis Operation Date: 04/03/22 12:30 Pre-Op Diagnosis: Left Hip Degenertive Joint Disease Post-Op Diagnosis: Left Hip Degenertive Joint Disease I identified the patient and participated in the time-out.: Yes Procedure Operation Date: 04/03/22 12:30 Actual Procedures p Left Total Hip Arthroplasty, Uncemented(Left) - Kam Lopez MD Surgeon Kam Lopez MD International Project Manager Leandro Peterson PA-C Estimated Blood Loss 200 Findings Consistent with Post-Op Diagnosis Operative findings resolved moderate to advanced left hip arthritis. She had full-thickness cartilage loss of the femoral head. A small hip joint effusion. Anterior acetabular osteophyte. Fluids 1300 cc Specimens Left femoral head sent for pathology Drains None Anesthesia Type Spinal MAC Complications none Disposition Accompanied Patient To Recovery: No Indications Patient is a 66-year-old fairly active female is had a year history of progressive increasing left hip pain discomfort. She had a right hip replaced in the past. She says this pain was identical to what she developed on her other hip prior to surgery. She is done well with the right hip. Pain is become more more disabling. X-rays show moderate to advanced hip arthritis. She elected proceed with surgical treatment. She failed conservative measures. Description of Procedure Operative implants consist of: 1. Biomet G7 size 52 mm acetabular shell. 2. 6.5 cancellous acetabular screws 1 of 35 mm length 1 to 20 mm length. 3. [place] hole events traffic controller. 4. Highly cross-linked polyethylene liner with a 52 mm outer diameter and 36 mm inner diameter. 5. DePuy Corail size 10 KLA femoral stem. 6. +5/36 mm ceramic articular ball. The patient was taken to the operating, identified, placed on the operating table supine position protectors were properly padded. IV antibiotics tried by anesthesia team. A spinal anesthetic was implemented by the anesthesia team in the holding area. Stern catheter was placed in sterile fashion. The patient then placed in the right lateral decubitus position. Axillary roll was placed. Stulberg hip positioner was used for positioning. Left hip and leg were then prepped and draped in usual sterile fashion. A posterolateral approach to the left hip was then performed through a curvilinear incision centered over the greater trochanter. Sharp dissection was carried through subcutaneous tissue down to the IT band gluteal fascia the IT band gluteal fascia were incised longitudinally in line with skin incision. The greater trochanter bursa was excised. The piriformis and external rotators of the well supported hip joint capsule were then released from the posterior aspect of the hip as a single layer. Great care was taken throughout the procedure to protect the sciatic nerve at all times. Hip was internally rotated and dislocated. A femoral neck osteotomy cut was made with a Final Cut about 10 mm above the lesser trochanter. Femoral head was removed and sent for pathology. The femur was retracted anteriorly. Attention drawn the acetabulum. The acetabular labrum was excised. The pulmonary fat was excised. Sequential reaming the acetabular was then performed begin with size 45 and progressing up to 51. I then reamed a little bit with a 52 reamer and placed a 52 mm G7 acetabular shell in about 40 degrees lateral opening and 20 degrees of anteversion. It was fixed with two 6.5 cancellous acetabular screws. A trial liner was placed. An anterior acetabular osteophyte was removed. Attention drawn the femur. The proximal femur was entered with a [employer] cutter followed by canal finder. I then broached begin the size 8 and and then followed by a 9. We got pretty good fit and 9 so we trialed the hip. Everything fit appropriately was extremely stable but upon dislocating the hip by there was still a little bit of rotation in the component so we broached up to a size 10. He had excellent fit. Could not quite get it down to the calcar cut. We elect to place these implants. All trial implants were removed. [place] hole events traffic controller was placed. Highly cross- linked polyethylene liner was placed. A size 10 KLA femoral stem was impacted in position. It was left about a millimeter or [address] ability. +5/36 mm ceramic articular ball was placed. Hip was located once again found to be stable. Attention drawn toward closing. The wound was irrigated scope sounds pulsatile lavage solution. We did inject locally with 50 cc of half percent Marcaine with epinephrine. The posterior capsule and external rotators were repaired through drill holes in the posterior trochanter with #2 Tycron suture. The IT band gluteal fascia then closed #1 PDS suture running fashion for subcutaneous tissues then closed with 2 layers of the deep layer #2 Vicryl sutures in a buried interrupted fashion followed by a 2-0 Dexon suture in a buried interrupted fashion. Skin was closed skin carla. Leg was then cleaned and dried and sterile Prevena VAC dressing was applied. The patient was then transferred to the recovery room in stable condition. Patient tolerated procedure well and there are no complications. Leandro Peterson, my physician embroidery assistant, was present for the entire procedure. His assistance was essential and required for appropriate patient positioning, prepping and draping, surgical exposure, performing the technical details of the operation, placement the implants, closure of the wound, and placement of the sterile bandage. I attest to the content of the Intraoperative Record and any orders documented therein. Any exceptions are noted below.
--- NOTE | 2022-04-03 15:56 | Anesthesiology Progress Note ---
Date of Service April 03, 2022 Anesthesia Post Procedure Vital Signs Vital Signs: Temp Pulse Pulse Resp BP Pulse Ox O2 Del Method 04/03/22 15:45 77 16 116/65 97 Room Air 04/03/22 15:35 89 15 102/71 100 Room Air 04/03/22 15:25 80 18 116/67 97 Room Air 04/03/22 15:15 78 20 115/65 100 Oxymask 04/03/22 15:08 36.6 C 85 16 124/68 100 Oxymask 04/03/22 10:17 36.7 C 102 H 20 130/80 95 Room Air O2 Flow Rate 04/03/22 15:45 04/03/22 15:35 04/03/22 15:25 04/03/22 15:15 4 04/03/22 15:08 9 04/03/22 10:17 Transfer of Care Handoff Completed per policy Notes Mental Status: alert / awake / arousable Patient Amnestic to Procedure: Yes Nausea / Vomiting: adequately controlled Pain: adequately controlled Airway Patency, RR, SpO2: stable & adequate BP & HR: stable & adequate Hydration State: stable & adequate Neuraxial Anesthesia: was administered and sensory block is resolving Anesthetic Complications: no major complications apparent
[2022-04-03] MEDS ORDERED: bisacodyL 10 MG SUPP PR PRN (16:53)
[2022-04-03] MEDS ORDERED: MAGNESIUM HYDROXIDE SUSP 30 ML UDC PO PRN (16:53)
[2022-04-03] MEDS ORDERED: NALOXONE HCL 0.4 MG/1 ML VIAL/CARP IV PRN (16:53)
[2022-04-03] MEDS ORDERED: ALUMINUM/MAGNESIUM SUSP 30 ML UDC PO PRN (16:53)
[2022-04-03] MEDS ORDERED: METOCLOPRAMIDE HCL INJ 5 MG/ML 2 ML VIAL IV PRN (16:53)
[2022-04-03] MEDS ORDERED: HYDROmorphone INJ 0.5 MG/0.5 ML SYR IV PRN (16:53)
[2022-04-03] MEDS ORDERED: traMADol HCL 50 MG TABLET PO PRN (16:53)
[2022-04-03] MEDS ORDERED: ALBUTEROL HFA 8 GM INHALER INH PRN (16:53)
[2022-04-03] MEDS: SODIUM CHLORIDE 0.9% 1000ML 1,000 ML IV SCH (17:58)
[2022-04-03] MEDS: Scopolamine CHECK PATCH PLACEMENT SCH ×2 (17:58→22:58)
[2022-04-03] MEDS: ASCORBIC ACID 500 MG TAB PO SCH (17:59)
--- NOTE | 2022-04-03 18:08 | XRay Report ---
XR hip 1V LT w pelvis CLINICAL HISTORY: Postoperative evaluation. COMPARISON: Pelvis radiograph December 10, 2018. Left hip radiographs January 24, 2022. FINDINGS: Alignment of the total left hip arthroplasty is anatomic. There is no periprosthetic fract ure. There are skin carla. There is acetabular screws. Right hip arthroplasty is noted. IMPRESSION: Expected findings following total left hip arthroplasty. ACT 112: Negative or not required by law. Electronically signed by: Mario Roberts M.D. 04/03/2022 6:07 PM
[2022-04-03] MEDS: ASPIRIN 81 MG ECTAB PO SCH (20:52)
[2022-04-03] MEDS: DOCUSATE SODIUM 100 MG CAP PO SCH (20:55)
[2022-04-03] MEDS ORDERED: SENNA 8.6 MG TAB PO SCH (21:00)
[2022-04-03] MEDS ORDERED: TRANEXAMIC ACID / 0.7% NACL 1,000 MG/100 ML BAG IV SCH (21:30)
[2022-04-03] MEDS: ceFAZolin 1000MG 1,000 MG/7.5 ML SYR IV SCH (22:24)
[2022-04-03] MEDS: ACETAMINOPHEN 500 MG TAB PO SCH (22:25)
[2022-04-03] MEDS: KETOROLAC 30 MG/ML VIAL IV SCH (22:25)
[2022-04-04] MEDS: ceFAZolin 1000MG 1,000 MG/7.5 ML SYR IV SCH (04:38)
[2022-04-04] MEDS: KETOROLAC 30 MG/ML VIAL IV SCH ×2 (04:38→10:27)
[2022-04-04] MEDS: SODIUM CHLORIDE 0.9% 1000ML 1,000 ML IV SCH (04:40)
[2022-04-04] MEDS: ACETAMINOPHEN 500 MG TAB PO SCH ×2 (05:46→13:04)
[2022-04-04 07:39] LABS: Basophils # (auto) 0.02 K/uL (0-0.2); Basophils % (auto) 0.3 %; Eosinophils # (auto) 0.17 K/uL (0-0.50); Eosinophils % (auto) 2.4 %; Hematocrit (blood only) 31.7 % (34.1-44.9); Hemoglobin 10.4 g/dl (12.0-16.0); Immature Granulocytes # (auto) 0.08 K/uL (0.00-0.02); Immature Granulocytes % (auto) 1.1 %; Lymphocytes # (auto) 1.04 K/uL (1.2-3.4); Lymphocytes % (auto) 14.6 %; Mean Corpuscular Hemoglobin 29.3 pg (25.0-34.0); Mean Corpuscular Hgb Conc 32.8 g/dL (32.0-36.0); Mean Corpuscular Volume 89.3 fL (80.0-100.0); Monocytes # (auto) 0.52 K/uL (0.24-0.82); Monocytes % (auto) 7.3 %; Neutrophils % (auto) 74.3 %; Platelet Count 160 K/uL (130-400); RDW Coefficient of Variation 12.4 % (11.5-14.5); RDW Standard Deviation 41.1 fL (36.4-46.3); Red Blood Count 3.55 M/uL (3.93-5.22); White Blood Count 7.13 K/ul (4.8-10.8)
--- NOTE | 2022-04-04 07:53 | Progress Notes ---
DATE OF SERVICE: 04/04/2022. SUBJECTIVE: A 66-year-old white female, postoperative day 1 from left hip replacement. She is doing well. Had good night. Pain is controlled. No chest pain or shortness of breath. Not feeling dizz y or lightheaded. OBJECTIVE: VITAL SIGNS: Temperature 37.1. Vital signs are stable. GENERAL: Shows a pleasant, elderly female. She is lying in bed and looks comfortable this morning. LUNGS: Clear to auscultation. HEART: Has a regular rate and rhythm. ABDOMEN: Soft, nontender, nondistended. EXTREMITIES: Grossly neurovascularly intact except as follows. Examination of the left hip and leg reveals the Prevena VAC dressing to be in place. Leg lengths wer e equal. Thigh is soft and supple. She is neurologically intact. LABORATORY DATA: Labs are pending. ASSESSMENT: A 66-year-old female postoperative day 1 from a left hip replacement, doing well. Pain is controlled. Hip is located. She is neurologically intact. PLAN: 1. DVT prophylaxis includes thigh-high TEDs, SCDs, and aspirin twice a day. 2. PT/OT, weightbear as tolerated. Left total hip protocol. 3. Pain control, doing well with current pain regimen. 4. Disposition: Plan to discharge to home with some home health if she does okay in therapy today. Job ID: [id number]
[2022-04-04] MEDS ORDERED: dexAMETHasone 10 MG in SYRINGE 0 ML IV SCH (08:00)
[2022-04-04] MEDS: DOCUSATE SODIUM 100 MG CAP PO SCH (08:24)
[2022-04-04] MEDS: ASPIRIN 81 MG ECTAB PO SCH (08:24)
[2022-04-04] MEDS: ASCORBIC ACID 500 MG TAB PO SCH (08:24)
[2022-04-04] MEDS: Scopolamine CHECK PATCH PLACEMENT SCH (08:25)
[2022-04-04 08:51] LABS: BUN Creatinine Ratio 13.8 (10-20); Calcium 8.8 mg/dl (8.5-10.1); Creatinine Clr Calc Pharmacy 102.3 ml/min; Est GFR (African American) 112.1 ml/min; Est GFR (Non-African American) 96.7 ml/min; Potassium 3.8 mmol/L (3.5-5.1)
[2022-04-04] MEDS ORDERED: MULTIVITAMIN TAB PO SCH (09:00)
[2022-04-04] MEDS ORDERED: DOCUSATE SODIUM/SENNA 50/8.6MG TAB PO SCH (09:00)
[2022-04-04] MEDS ORDERED: FLUTICASONE/VILANTEROL 100/25MCG 14 PUFFS/INHALER INH SCH (09:00)
[2022-04-04] MEDS ORDERED: CALCIUM 600MG + VIT D 400 IU TAB PO SCH (09:00)
--- NOTE | 2022-04-06 15:59 | Discharge Summary ---
Date of Service April 06, 2022 Discharge Data Procedures Performed Operation Date: 04/03/22 12:30 Actual Procedures p Left Total Hip Arthroplasty, Uncemented(Left) - Kam Lopez MD Hospital Course (1) S/P total left hip arthroplasty: This is a 66 year old patient admitted on 04/03/22 and underwent total hip arthroplasty. She tolerated the procedure well and there were no complications. Transferred to the PACU post op and later to the orthopedic floor for further care. She was given ancef for antibiotic prophylaxis. She was also given BETSY stockings, SCDs, and aspirin for DVT prophylaxis. Hemoglobin, hematocrit, and vital signs were monitored during her hospital stay and remained stable. Did not require any blood transfusions. There were no complications during her hospital stay. By post op day #1 the patient was tolerating a regular diet, pain was reasonably controlled with oral pain medicine, and she was participating in physical therapy. On post op day #1 the patient was discharged home and set up with home health care. She was given printed discharge instructions including prescriptions for extra strength tylenol, aspirin, senokot, zofran, and tramadol. Continue physical therapy, weight bearing as tolerated. Continue hip precautions. Continue BETSY stockings. Follow up approximately 2 weeks post op or sooner if there are problems or concerns. Coding Level of Care Code None Diagnoses S/P total left hip arthroplasty Z96.642
== END 2022-04-04 13:57 | disposition home health service (06) ==
LOC: 3W 09:44 → ASU 09:44

== ENCOUNTER 2024-01-20 08:26 | Observation (INO) ==
--- NOTE | 2023-12-26 11:02 | PAT Medication Instructions ---
Medication Instructions Date of Service December 26, 2023 Home Medications Medication Instructions Recorded albuterol sulfate 90 mcg/actuation 2 puff inhalation Q6H PRN 02/17/19 aerosol inhaler (Ventolin HFA) Shortness Of Breath #3 ea amoxicillin 500 mg tablet 2,000 mg (4 x 500 mg) PO ONCE #4 01/04/21 tabs acetaminophen 500 mg capsule 1,000 mg (2 x 500 mg) PO TID Pain 04/01/22 30 days #180 caps fluticasone 100 mcg-salmeterol 50 1 inh inhalation BID #60 ea 01/20/23 mcg/dose blistr powdr for inhalation (Wixela Inhub) calcium 600 mg (as carbonate)-vitamin D3 5 mcg (200 unit) capsule (Calcium 600 + D(3)) 1 cap PO QAM albuterol sulfate 90 mcg/actuation aerosol inhaler (Ventolin HFA) 2 puff inhalation Q6H PRN Shortness Of Breath amoxicillin 500 mg tablet 2,000 mg (4 x 500 mg) PO ONCE acetaminophen 500 mg capsule 1,000 mg (2 x 500 mg) PO TID Pain fluticasone 100 mcg-salmeterol 50 mcg/dose blistr powdr for inhalation (Wixela Inhub) 1 inh inhalation BID Continue as directed amoxicillin 500 mg tablet 2,000 mg (4 x 500 mg) PO ONCE (if needed) DO NOT take the morning of surgery calcium 600 mg (as carbonate)-vitamin D3 5 mcg (200 unit) capsule (Calcium 600 + D(3)) 1 cap PO QAM Take morning of surgery With a small sip of water, OTHERWISE NOTHING TO EAT OR DRINK AFTER MIDNIGHT: albuterol sulfate 90 mcg/actuation aerosol inhaler (Ventolin HFA) 2 puff inhalation Q6H PRN Shortness Of Breath (use if needed; please bring with you to hospital day of surgery if possible) acetaminophen 500 mg capsule 1,000 mg (2 x 500 mg) PO TID Pain (if needed) fluticasone 100 mcg-salmeterol 50 mcg/dose blistr powdr for inhalation (Wixela Inhub) 1 inh inhalation BID Take evening before surgery albuterol sulfate 90 mcg/actuation aerosol inhaler (Ventolin HFA) 2 puff inhalation Q6H PRN Shortness Of Breath (if needed) acetaminophen 500 mg capsule 1,000 mg (2 x 500 mg) PO TID Pain (if needed) fluticasone 100 mcg-salmeterol 50 mcg/dose blistr powdr for inhalation (Yaneli Inhub) 1 inh inhalation BID Other Notes If you have any questions please call us at [phone] or [phone] or [phone] or [phone]
--- NOTE | 2024-01-01 14:36 | Anesthesiology Consultation ---
Date of Service January 01, 2024 Assessment & Plan (1) Encounter for pre-operative examination: - Infectious disease screening: Per assessment on 01/01/24: No known recent infectious disease contacts or current infectious disease symptoms. - Outpatient joint assessment: Pt currently scheduled for inpatient pathway. If surgeon requests review for outpatient joint pathway, patient is acceptable candidate for outpatient joint program from anesthesia standpoint pending surgeon's office assessment that patient is motivated, has good support and completes [facility] Day Joint Program preop requirements. - S/P Left TONY (04/03/22): SAB at L3-4 at [facility] - Awaiting upcoming PCP routine visit ([facility], appt 01/11). Patient otherwise acceptable risk for surgery. Chart Review Chart Review: Patient seen in Pre Admission Testing Teaching & Discussion Pre-Anesthesia Teaching/Discussion Notes: Instructed NPO after midnight before surgery,except medications with 15 cc of water. Medication instructions provided according to the PAT guidelines. History Surgery Operation Date: 01/20/24 10:40 Proposed Procedures p Right Total Knee Arthroplasty - Kam Lopez MD Height/Weight Height: 5 ft 7 in Weight: 80.9 kg Allergies Allergy/AdvReac Type Severity Reaction Status Date / Time adhesive tape Allergy Mild Skin Verified 12/31/23 09:29 irritation ("the old tape") codeine Allergy Unknown Unknown Verified 12/31/23 09:29 (as child) Medications Home Medications Medication Instructions Recorded Confirmed Last Taken calcium 600 mg (as 1 cap PO QAM 09/28/18 12/26/23 03/29/22 carbonate)-vitamin D3 5 mcg (200 unit) capsule (Calcium 600 + D(3)) albuterol sulfate 90 mcg/actuation 2 puff inhalation Q6H PRN 02/17/19 12/26/23 Unknown aerosol inhaler (Ventolin HFA) Shortness Of Breath #3 ea amoxicillin 500 mg tablet 2,000 mg (4 x 500 mg) PO ONCE #4 01/04/21 12/26/23 Unknown tabs acetaminophen 500 mg capsule 1,000 mg (2 x 500 mg) PO TID Pain 04/01/22 12/26/23 Unknown 30 days #180 caps fluticasone 100 mcg-salmeterol 50 1 inh inhalation BID #60 ea 01/20/23 12/26/23 Unknown mcg/dose blistr powdr for inhalation (Wixela Inhub) Past Medical History Medical History Asthma Benign essential tremor Mild, hands Degenerative arthritis of knee, bilateral Generalized osteoarthritis History of cardiac murmur as a child Stress echo 03/2023: No significant vlavular abnormalities History of kidney stones Passed on own No recent issues Hx of adenomatous polyp of colon HX: breast cancer Left- radiation 2012 Limb restriction Limb alert care status LUE Non-allergic rhinitis Exercise / Class Metabolic Activity II 4-5 Yardwork/Stairs/Walk up hill (one FS: No CP, no SOB) Past Family History Family History Mother Family history of diabetes mellitus Breast cancer Thyroid disease Father Heart disease Asthma Other No family history of adverse response to anesthesia Past Surgical History Surgical History History of appendectomy History of bunionectomy of left great toe History of hysterectomy History of left heart catheterization (1967) During childhood (5th grade) secondary to murmur (murmur resolved) History of lumpectomy of left breast Hx of bilateral hip replacements Left TONY (04/03/22): SAB at L3-4 at [facility] Right 2019 Hx of cholecystectomy Hx of colonoscopy with polypectomy Hx of shoulder surgery Right ("to remove lump") Hx of tonsillectomy Nausea and vomiting after administration of anesthetic agent "Patch worked well" in the past Past Anesthesia History No Hx of Anesthesia Complications and No Family Hx of Anesthesia Complications History of PONV History of PONV ("Patch worked well" in the past ) and Hx of Motion Sickness (Occasional) Social History Smoking Status: Never smoker Do You Dip or Chew Tobacco: No Hx Alcohol Use: No Hx Substance Use: No substance use type: does not use Review of Systems Patient denies chest pain, shortness of breath, dyspnea on exertion, fever, chills, cough, wheezing, palpitations. Physical Exam Vital Signs BP 119/75 P 90 TEMP 98.1 SP02 96%RA RESP 16 Physical Full cervical extension range of motion. Full TMJ range of motion. TMD 3 finger breaths Mallampati Score I Dentition: missing side/molars Lungs: clear throughout to auscultation Cardiac: regular rate and rhythm, no murmurs noted Spine: normal Carotid arteries: negative bruit Extremities: no LE edema Lab Results Anesthesia Preop Results Results Anesthesia Widget: WBC 5.09 K/ul (4.8-10.8) 01/01/24 Hgb 12.2 g/dl (12.0-16.0) 01/01/24 Hct 38.2 % (37.0-47.0) 01/01/24 Plt 198 K/uL (130-400) 01/01/24 Na 140 mmol/L (136-145) 01/01/24 K 4.1 mmol/L (3.5-5.1) 01/01/24 Cl 107 mmol/L (98-107) 01/01/24 CO2 27 mmol/L (21-32) 01/01/24 BUN 13 mg/dl (6-23) 01/01/24 Creat 0.68 mg/dl (0.6-1.2) 01/01/24 Glucose Level 113 mg/dl (70-99(Fasting)) H 01/01/24 PT 11.0 Seconds (9.0-12.0) 01/01/24 PTT 31 Seconds (21-31) 01/01/24 INR 1.0 (0.9-1.1) 01/01/24 Blood Type A Positive 01/01/24 Antibody Screen NEGATIVE 01/01/24 Testing Electrocardiogram Date: 01/01/24 Findings: + NSR @ (77) Chest X-Ray Date: 01/01/24 FINDINGS: Lung volumes are normal. Lungs are clear. There is no pneumothorax or pleural effusion. Cardiac size is normal. Mediastinal contours are normal. There is no evidence for pulmonary edema. IMPRESSION: No acute cardiopulmonary findings. Stress Test Date: 03/25/23 Type: exercise Negative exercise stress echo/ECG for ischemia at 1.18% MPHR. Fair exercise tolerance. EF 60 to 65%. No regional wall motion abnormality. No LVH. Mild HI. 7 METS.
--- NOTE | 2024-01-19 13:14 | Anesthesiology Progress Note ---
Date of Service January 19, 2024 Anesthesia Post Procedure Transfer of Care Handoff Completed per policy Notes Mental Status: alert / awake / arousable Patient Amnestic to Procedure: Yes Nausea / Vomiting: adequately controlled Pain: adequately controlled Airway Patency, RR, SpO2: stable & adequate BP & HR: stable & adequate Hydration State: stable & adequate Neuraxial Anesthesia: was administered and sensory block is resolving Anesthetic Complications: no major complications apparent and Pt Satisfied with anesthetic care
[~2024-01-20 08:26] MED LIST changes: -ACETAMINOPHEN 500 MG TAB PO SCH; -BUPIVACAINE 0.5 % 5 MG/1 ML PF 10ML VIAL ONE; -CeleBREX 200 MG CAP PO SCH; -FAMOTIDINE 20 MG TAB PO SCH; -LR 500ML BOLUS, THEN 15ML/HR IV SCH; -LR 60ML/HR IV SCH; -METOCLOPRAMIDE HCL 10 MG TABLET PO SCH; +ROPIVACAINE 0.5% 5 MG/ML 30 ML VIAL ONE; -Scopolamine 1 MG TDSY TD SCH; -TRANEXAMIC ACID 1,000 MG **IV Pre-op IV SCH; -ceFAZolin 2000MG 2,000 MG/15 ML SYR IV SCH
--- NOTE | 2024-01-20 08:49 | History & Physical Bridge Note ---
Date of Service January 20, 2024 History & Physical Bridge Note I have examined the patient, reviewed the History & Physical and in the interval since the performance of the History & Physical I have noted the following changes of clinical significance: no changes noted
[2024-01-20] MEDS ORDERED: ePHEDrine sulfate 50 MG/ML AMP IV PRN (09:02)
[2024-01-20] MEDS ORDERED: ATROPINE SULFATE 0.1 MG/ML 10ML SYR IV PRN (09:02)
[2024-01-20] MEDS ORDERED: ONDANSETRON INJ 2 MG/ML 2 ML VIAL IV PRN ×2 (09:02→13:49)
[2024-01-20] MEDS ORDERED: fentaNYL citrate PF 100 MCG/2 ML VIAL IV PRN (09:02)
[2024-01-20] MEDS ORDERED: HYDROmorphone INJ 1 MG/ML SYRINGE IV PRN (09:02)
[2024-01-20] MEDS ORDERED: ONDANSETRON INJ 2 MG/ML 2 ML VIAL ONE (09:35)
[2024-01-20] MEDS ORDERED: LIDOCAINE 2% 2 ML VIAL/AMP(20MG/ML) INFIL ONE (09:35)
[2024-01-20] MEDS ORDERED: PROPOFOL IV EMULSION 10 MG/ML 20 ML VIAL IV ONE (09:35)
[2024-01-20] MEDS ORDERED: MIDAZOLAM HCL 1 MG/ML 2ML VIAL ONE (09:36)
[2024-01-20] MEDS: LR 500ML BOLUS, THEN 15ML/HR IV SCH (09:38)
[2024-01-20] MEDS: ACETAMINOPHEN 500 MG TAB PO SCH ×2 (09:39→14:37)
[2024-01-20] MEDS: FAMOTIDINE 20 MG TAB PO SCH (09:40)
[2024-01-20] MEDS: METOCLOPRAMIDE HCL 10 MG TABLET PO SCH (09:40)
[2024-01-20] MEDS: CeleBREX 200 MG CAP PO SCH (09:40)
[2024-01-20] MEDS: LR 60ML/HR IV SCH (09:41)
[2024-01-20] MEDS: dexAMETHasone 10 MG in SYRINGE 0 ML IV SCH (09:43)
[2024-01-20] MEDS: dexAMETHasone**PF** 10 MG/ML VIAL IV ONE (09:45)
--- OUTSIDE RECORDS SUMMARY | 2024-01-20 09:48 | External Medical Summary | Summary of Care ---
Author Name Unknown Organization [facility] Address [address] [place] [address] Phone [phone] Care Team Providers Care Vice President Of Brand Management Name Role Phone Allan Gimenez MD Primary Care Provider [phone] Encounter Details Date Type Department Care Team (Late st Contact Info) Description 01/12/2024 Orders Only Outcomes Research Department [address], [place] [id number] Irena Mae CHRA MyCode Research Other*[id number] Allergies Active Allergy Reactions Criticality Noted Date Comments Codeine Unknown 08/12/2011 Pt was a child Adhesive Tape Rash Low 08/05/2015 Skin irritation documented as of this encounter (statuses as of 01/12/2024) Medications Medication Sig Dispensed Refills Start Date End Date Status fluticasone (FLONASE) 50 MCG/ACT nasal sprayIndications:Acut e rhinosinusitis Administer 2 Sprays into each nostril daily. 1 Inhaler 0 10/10/2014 Active Additional Information Patient not taking.Reported on 03/20/2022 Calcium Carbonate-Vit D-Min (CALCIUM 600+D PLUS MINERALS) 600-400 MG-UNIT TABS Take 600 mg by mouth in the morning. Active anastrozole (ARIMIDEX) 1 MG Tablet Take 1 mg by mouth daily. Active albuterol (VENTOLIN HFA) 108 (90 BASE) MCG/ACT inhaler Inhale 2 Puffs by mouth every 4 hours as needed for Wheezing. 1 Inhaler 5 02/24/2017 Active Additional Information Patient not taking.Reported on 03/20/2022 Multiple Vitamins-Minerals (MULTIVITAMIN WOMEN) TABS Take by mouth . Active Mometasone Furo-Formoterol Fum 100-5 MCG/ACT Inhalation Aerosol Inhale 2 Puffs by mouth 2 times a day. Active predniSONE 10 MG Oral Tablet (Deltasone)Indication s:Viral sinusitis,Allergic rhinitis, unspecified seasonality, unspecified trigger 3 tabs by mouth once daily x 5 days. Take in the AM with food. 15 Tablet 05/05/2021 Active Fluticasone-Salmetero l 100-50 MCG/ACT Inhalation Aerosol Powder Breath Activated Inhale 1 Puff by mouth in the morning and 1 Puff before bedtime. Active documented as of this encounter (statuses as of 01/12/2024) Active Problems Problem Noted Date Diagnosed Date Advanced directives, counseling/discussion 11/21 Overview: Does not have Chronic rhinitis 06/06/2015 Hoarseness 06/06/2015 Breast cancer, left breast 08/30/2013 Rash and nonspecific skin eruption 08/30/2013 documented as of this encounter (statuses as of 01/12/2024) Resolved Problems Problem Noted Date Diagnosed Date Resolved Date Incomplete uterovaginal prolapse 05/13/2017 09/05/2017 Cystocele, lateral 05/13/2017 8 Rectocele 05/13/2017 09/05/2017 Vaginal erosion secondary to pessary use 05/13/2017 09/05/2017 Cystocele, midline 04/29/2017 8 documented as of this encounter (statuses as of 01/12/2024) Immunizations Name Administration Dates Next Due Pneumococcal Polysaccharide PPV23 (Pneumovax) Seasonal Influenza, Quadrivalent, No Preserve, I M 12/24/2016 TDAP (age 10 and older)(Boostrix) 02/24/2017 02/24/2027 documented as of this encounter Social History Tobacco Use Types Packs/Day Years Used Date Smoking Tobacco: Never Smokeless Tobacco: Never Alcohol Use Standard Drinks/Week Comments No 0 (1 standard drink = 0.6 oz pur e alcohol) PHQ-2 Answer Date Recorded PHQ-2 Score 0 01/25/2018 Utilities Answer Date Recorded Do you have trouble paying y our heating, water, or electric bill? (Adult - for ages 18 years and over) Not on file 09/09/2023 Is your family able to pay t he heat, water, or electric bill? (Household - for ages 0-17 years) Not on file 09/09/2023 Does your family have access to good internet? (Household - for ages 0-17 years) Not on file 09/09/2023 Social Connections Answer Date Recorded How often do you feel lonely or isolated from those around you? (Adult - for ages 18 years and over) Not on file 09/09/2023 Sex and Gender Information Value Date Recorded Sex Assigned at Not on file Gender Identity Not on file Sexual Orientation Not on file Job Start Date Occupation Industry Not on file Not on file Not on file documented as of this encounter Plan of Treatment Upcoming Encounters Date Type Department Care Team (Late st Contact Info) Description 02/24/2024 2:30 PM EST Appointment Radiology, [address] [place] [address] Scheduled Orders Name Type Priority Associated Diagnoses Orde r Schedule MYCODE SUBSEQUENT ADULT Lab Routine MyCode Research Other*[id number] Every 6 Months for 2 Occurrences starting 01/12/2024 until 01/31/2025 Scheduled Procedures Name Priority Associated Diagnoses Date/Ti me COLONOSCOPY FLEXIBLE PROXIMA L DIAGNOSTIC Recall History of colonic polyps Health Maintenance Due Date Last Done Comments Hepatitis C Screening 1974 Cologuard 2001 Fecal Occult Blood Test 2001 Sigmoidoscopy 2001 Zoster Vaccines (1 of 2) 2006 Depression Screening 02/24/2018 02/24/2017 Diabetes Screening 08/07/2020 08/07/2017, 1 04/27/2016, 02/26/2016, Additional history exists Lipid Panel 04/06/2021 04/06/2016 Pneumococcal Vaccine: 65+ Years (2 of 2 - PCV) 2021 09/03/2017 COVID-19 Vaccine ( - season) 2023 Influenza Vaccine (FLU shot) (#1) 2023 12/24/2016 Mammogram 02/21/2024 02/20/2023, 01/23, 02/09/2021, Additional history exists DTap/Tdap Vaccines (2 - Td or Tdap) 02/24/2027 02/24/2017 Colonoscopy 04/01/2027 04/01/2022, 11/2022, 02/26/2021, Additional history exists Colorectal Cancer Screening 04/01/2027 DXA Scan 12/21/2030 12/21/2020, 10/22, 10/29/2016, Additional history exists RETIRED - COLONOSCOPY-ANNUAL AGES 18-100 Discontinued 04/01/2022, 04/01/2022, 02/26/2021, Additional history exists RETIRED - COLONOSCOPY-EVERY 5 YRS AGES 18-100 Discontinued 04/01/2022, 04/01/2022, 02/26/2021, Additional history exists HPV (Gardasil) Vaccine Aged Out No lo nger eligible based on patient's age to complete this topic Hepatitis B Vaccine Aged Out No longe r eligible based on patient's age to complete this topic MENINGOCOCCAL (MENACTRA/MENVEO) Aged Out No longer eligible based on patient's age to complete this topic documented as of this encounter Medical Devices Implanted Type Area Clinical Aide Device Identifier Shelf Expiration Date Model / Serial / Lot Mesh Restorelle Directfix Ant - [id number] Implanted:Qty: 1 on 09/02/2017 by Pieter Brown DO at [facility] N/A: Vagina COLOPLAST SWEEN ALYSA 07/14/2020 [id number] / / [id number] System Anchorsure 2 Sutures - [id number] Implanted:Qty: 1 on 09/02/2017 by Pieter Brown DO at [facility] N/A: Vagina [employer] 05/27/2019 A-SURE / / [id number] Suture Anchorsure 2pk - [id number] Implanted:Qty: 2 on 09/02/2017 by Pieter Brown DO at [facility] N/A: Vagina [employer] 04/23/2019 [id number] / / [id number] documented as of this encounter Visit Diagnoses Diagnosis MyCode Research Other*[id number] Screening mammogram for breast cancer documented in this encounter Advance Directives * Full Code (Latest Code Status on File) Date Activated Date Inactivated Comments 09/02/2017 2:51 PM 09/03/2017 6:28 PM This order r eflects the patients wishes and were consensually agreed upon. Care Teams Vice President Of Brand Management Relationship Specialty Start Date End Date Allan Gimenez MD PCP - General Family Medicine 04/16/19 documented as of this encounter
[2024-01-20] MEDS: ALBUT/IPRATROP 3MG/0.5MG NEB 3 ML VIAL NEB STA (10:02)
[2024-01-20] MEDS: SCOPOLAMINE 1 MG/72 HR TDSY PATCH TD ONE ×2 (10:28)
[2024-01-20] MEDS: ceFAZolin 2000MG 2,000 MG/15 ML SYR IV SCH (11:05)
[2024-01-20] MEDS: ROPIV 0.5% 246mg, Ketorolac 30mg, EPINEPHrine 0.5mg in NSS INFIL SCH (11:38)
[2024-01-20] MEDS: ORTHO JOINT ANESTHETIC ONE (11:39)
[2024-01-20] MEDS: TRANEXAMIC ACID 1,000 MG **IV Pre-op IV SCH (11:55)
--- NOTE | 2024-01-20 12:41 | Operative Report ---
PG Post Operative Report Pre & Post Diagnosis Operation Date: 01/20/24 10:40 Pre-Op Diagnosis: Right Knee Degenerative Joint Disease Post-Op Diagnosis: Right Knee Degenerative Joint Disease I identified the patient and participated in the time-out.: Yes Procedure Operation Date: 01/20/24 10:40 Actual Procedures p Right Total Knee Arthroplasty(Right) - Kam Lopez MD Surgeon Kam Lopez MD Termination Clerk Leandro Peterson PA-C Estimated Blood Loss 50 Findings Consistent with Post-Op Diagnosis Specimens Right knee sent for pathology. Anesthesia Type Spinal MAC Complications none Disposition Accompanied Patient To Recovery: No Indications Patient is a 68-year-old female has had a long history of multiple joint problems. She has had both hips replaced in the past. In the past several years she developed increased pain discomfort in both knees right side bit worse than left. She failed conservative measures. She elected proceed with right total knee replacement. Description of Procedure Operative implants consist of: 1 Biomet Vanguard size 65 right posterior stabilized femoral component. 2. Biomet size 67 tibial tray. 3. 10 mm posterior stabilized polyethylene insert. 4. 28 x 8 all poly patella. The patient was taken the operating, identified, placed on the operating table in the supine position but all conductors were appropriately padded. IV antibiotics tried by anesthesia team. A spinal anesthetic and adductor canal block had been provided in the holding area. A Stern catheter was placed in sterile fashion. Right thigh high tourniquet was then placed in the right lower extremity was then prepped and draped in usual sterile fashion. The right leg was elevated and exsanguinated with use of an Esmarch and a turn was placed at 300 mmHg. An anterior approach of the right knee was then performed to longitudinal incisions. This was centered over the kneecap. Sharp dissection was carried out through subcutaneous tissue down the extensor mechanism. A medial parapatellar arthrotomy incision was made. Some subperiosteal dissection was carried out medially. The fat pad was dissected from Neath patella tendon. The lateral patellofemoral ligament was released. Patella subluxated laterally and the knee was flexed. The osteophytes taken on distal femur. The ACL and PCL were then released from distal femur the tibia subluxated anteriorly. The external tibial alignment jig was then placed on the interface the tibia and adjusted 14 mm medially. Proximal tibial cut was made remove about 2 mm of bone from the medial side of the tibia. The tibia was then sized to a size 67. Attention drawn the femur. The distal femur examined the sharp drill. Intramedullary canal was suction. A right 5 degree valgus cutting guide was placed. This femoral cutting block was pinned in place. This femoral cut was made to take an additional 3 mm of bone off distal femur. The femur was then sized to a size 65. We did downsize this in order to accommodate for the fairly narrow medial and lateral dimensions of the femur. The AP cutting block was pinned parallel to the epicondylar axis which was 3 degrees of external rotation. The anterior cut, anterior chamfer, posterior cut, posterior chamfer cuts were made. The box cutting guide was placed in the just slightly lateral and the box cut was made. The knee was flexed. The remnants of medial and lateral menisci were excised. The osteophytes were taken off the posterior aspect the femur. A trial femoral component was placed. The tibial tray was pinned Amy external rotation and t he drill and stem punch were used to create defect in proximal tibia for the tibial tray. Knee was then trialed and the 10 mm insert fit most appropriately. Attention drawn to the patella. The patella was cleaned of all soft tissue. Patella thickness measured 22 mm in thickness was cut down to 14. It was sized to a size 28 patella. The lug holes were drilled for the 28 patella. The lateral osteophytes removed. Patella button was placed. Knee was taken through range of motion and the patella tracked nicely with no thumbs test. Attention drawn to place the permanent components. All trial components were removed. Bone plug was placed in the distal femur limit blood loss. A double batch Palacos G cement was mixed. A Biomet Vanguard size 65 right posterior stabilized femoral component, size 67 tibial tray, a 10 mm posterior Byce polyethylene insert, and a 28 x 8 all poly patella then cemented in place. The knee was brought out in full extension till cement hardened. Final cement check was performed. The pericapsular tissues were injected with total of 100 cc of Ortho mix. Patient did receive 1 g tranexamic acid. The tourniquet was then let down for a final tourniquet time 49 minutes. Hemostasis assured use electrocautery. Extensor Meclomen closed with combination 1 PDS suture #1 Vicryl suture in [id number] fashion. Extensor Meclomen checked found to be intact and subcutaneous tissue then closed with 2 Dexon suture in a buried interrupted fashion the skin was closed with skin carla. Leg was then cleaned and dried and a sterile dressing with Xeroform, 4 x 4's, sterile cast padding, William bandage were applied. Patient then transferred to the recovery room in stable condition. Patient tolerated procedure well and there were no complications. Leandro Peterson, my physician assistant film editor, was present for the entire procedure. His assistance was essential and required for appropriate patient positioning, prepping and draping, surgical exposure, performing the technical details of the operation, placement the implants, closure of the wound, and placement of the sterile bandage. I attest to the content of the Intraoperative Record and any orders documented therein. Any exceptions are noted below.
--- NOTE | 2024-01-20 13:28 | Anesthesiology Progress Note ---
Date of Service January 20, 2024 Anesthesia Post Procedure Vital Signs Vital Signs: Temp Pulse Pulse Resp BP Pulse Ox O2 Del Method 01/20/24 13:20 36.5 C 82 19 110/61 96 Room Air 01/20/24 13:10 72 14 107/58 L 98 Room Air 01/20/24 13:00 70 17 108/61 98 Room Air, Oxymask 01/20/24 12:50 77 17 104/59 L 97 Oxymask 01/20/24 12:40 37.1 C 83 20 102/54 L 97 Oxymask 01/20/24 10:03 70 16 97 Room Air 01/20/24 09:20 Room Air 01/20/24 09:20 36.9 C 86 20 131/74 97 Room Air O2 Flow Rate 01/20/24 13:20 01/20/24 13:10 01/20/24 13:00 2 01/20/24 12:50 4 01/20/24 12:40 6 01/20/24 10:03 01/20/24 09:20 01/20/24 09:20 Transfer of Care Handoff Completed per policy Notes Mental Status: alert / awake / arousable Patient Amnestic to Procedure: Yes Nausea / Vomiting: adequately controlled Pain: adequately controlled Airway Patency, RR, SpO2: stable & adequate BP & HR: stable & adequate Hydration State: stable & adequate Anesthetic Complications: no major complications apparent and Pt Satisfied with anesthetic care
[2024-01-20] MEDS ORDERED: METOCLOPRAMIDE HCL INJ 5 MG/ML 2 ML VIAL IV PRN (13:49)
[2024-01-20] MEDS ORDERED: MAGNESIUM HYDROXIDE SUSP 30 ML UDC PO PRN (13:49)
[2024-01-20] MEDS ORDERED: bisacodyL 10 MG SUPP PR PRN (13:49)
[2024-01-20] MEDS ORDERED: ALUMINUM/MAGNESIUM SUSP 30 ML UDC PO PRN (13:49)
[2024-01-20] MEDS ORDERED: HYDROmorphone INJ 0.5 MG/0.5 ML SYR IV PRN (13:49)
[2024-01-20] MEDS ORDERED: ALBUTEROL HFA 8 GM INHALER INH PRN (13:49)
[2024-01-20] MEDS ORDERED: NALOXONE HCL 0.4 MG/1 ML VIAL/CARP IV PRN (13:49)
--- NOTE | 2024-01-20 14:15 | XRay Report ---
XR knee RT 1 or 2V routine CLINICAL HISTORY: Surgical Post Op TECHNIQUE: 2 views of the right knee were obtained. Comparison: Comparison is made to knee radiographs 01/14/2024 FINDINGS: Patient is status post total knee arthroplasty with expected postsurgical changes including soft tiss ue swelling and subcutaneous emphysema. No periarticular lucency or hardware fracture is seen. IMPRESSION: Expected postoperative appearance status post placement of total knee arthroplasty. ACT 112: Negative or not required by law. Electronically signed by: Wilfredo Hess M.D. 01/20/2024 2:13 PM
[2024-01-20] MEDS: CHECK SCOPOLAMINE PATCH PLACEMENT SCH (14:32)
[2024-01-20] MEDS: TRANEXAMIC ACID / 0.7% NACL 1,000 MG/100 ML BAG IV SCH (17:26)
[2024-01-20] MEDS: ceFAZolin 1000MG 1,000 MG/7.5 ML SYR IV SCH (20:00)
[2024-01-20] MEDS ORDERED: SENNA 8.6 MG TAB PO SCH (21:00)
[2024-01-20] MEDS: SENNA 8.6 MG TAB PO SCH (21:02)
[2024-01-20] MEDS: DOCUSATE SODIUM 100 MG CAP PO SCH (21:03)
[2024-01-20] MEDS: KETOROLAC TROMETHAMINE 15 MG/ML VIAL IV SCH (21:03)
[2024-01-20] MEDS: ASCORBIC ACID 500 MG TAB PO SCH (21:08)
[2024-01-20] MEDS: ASPIRIN 81 MG ECTAB PO SCH (21:08)
[2024-01-21] MEDS: oxyCODONE HCL IR 5 MG TAB (IMMEDIATE RELEASE) PO PRN (00:15)
[2024-01-21 00:20] VITALS: RESP 18
[2024-01-21 06:27] LABS: Hematocrit (blood only) 31.1 % (37.0-47.0); Hemoglobin 10.3 g/dl (12.0-16.0); Mean Corpuscular Hemoglobin 29.4 pg (25.0-34.0); Mean Corpuscular Hgb Conc 33.1 g/dL (32.0-36.0); Mean Corpuscular Volume 88.9 fL (80.0-100.0); Mean Platelet Volume 10.8 fL (9.4-12.4); Platelet Count 152 K/uL (130-400); RDW Coefficient of Variation 12.2 % (11.5-14.5); RDW Standard Deviation 39.7 fL (36.4-46.3); White Blood Count 9.28 K/ul (4.8-10.8)
[2024-01-21 06:33] LABS: BUN Creatinine Ratio 15.6 (10-20); Calcium 8.7 mg/dl (8.6-10.3); Creatinine Clr Calc Pharmacy 76.6 ml/min; Potassium 4.1 mmol/L (3.5-5.1)
[2024-01-21 07:35] VITALS: BP 110/69; PULSE 69; TEMP 98.4; O2SAT 95
[2024-01-21] MEDS: dexAMETHasone 10 MG in SYRINGE 0 ML IV SCH (08:15)
[2024-01-21] MEDS: FLUTICASONE/VILANTEROL 100/25MCG 14 PUFFS/INHALER INH SCH (08:19)
[2024-01-21] MEDS: CALCIUM 600MG + VIT D 400 IU TAB PO SCH (12:34)
[2024-01-21] MEDS: MULTIVITAMIN TAB PO SCH (12:34)
--- NOTE | 2024-01-21 12:48 | Orthopedic Progress Note ---
Date of Service January 21, 2024 Assessment & Plan (1) Status post right knee replacement: Plan: 68-year-old female postop day 1 from right knee replacement doing pretty well. Pains controlled. She is neurologically intact. She is hoping to go home. Plan: 1. DVT prophylaxis. Thigh-high teds, SCDs, aspirin twice a day. 2. PT/OT. Weight-bear as tolerated. Right total knee protocol. 3. Pain control. Doing well with current pain regimen. 4. Disposition plan is to discharge to home with some home health today. Admission and Anticipated Discharge Date Admission Date: January 20, 2024 Subjective 68-year-old female postop day 1 from right knee replacement. She is doing pretty well. Ready to go home. Went to therapy this morning pretty well. No chest pain or shortness of breath. Pains been reasonably well-controlled. Physical Exam Physical Exam: Physical exam shows a pleasant middle-age female. As she is setting up in her bedside chair and looks pretty comfortable. Examination of the right leg reveals the dressing be clean dry and intact. She can do a straight leg raise with some effort. She can dorsiflex and plantarflex her foot appropriately. She is neurologically intact. Respiratory: normal respiratory effort, lungs clear to auscultation Cardiovascular: RRR, no murmur, no edema Gastrointestinal (Abdomen): normal bowel sounds, soft, nontender, no hepatosplenomegaly Results & Data Vital Signs (Past 12 Hours) Vital Signs Temp Pulse Resp BP Pulse Ox O2 Del Method 01/21/24 11:11 36.9 C 69 18 110/69 95 01/21/24 07:34 36.9 C 69 18 110/69 95 Room Air 01/21/24 04:22 36.6 C 67 18 100/62 97 Room Air Laboratory Results Hemoglobin is 10.3. Hematocrit is 31.1. Electrolytes are stable.
--- NOTE | 2024-01-23 09:06 | Discharge Summary ---
Date of Service January 23, 2024 Principal Diagnosis Same as "Discharge Diagnosis" noted below under Discharge Instructions. Discharge Data Procedures Performed Operation Date: 01/20/24 10:40 Actual Procedures p Right Total Knee Arthroplasty(Right) - Kam Lopez MD Ordered Studies 01/20/24 05:00 US - OR guided needle virgilmen Routine Hospital Course (1) Status post right knee replacement: This is a 68 year old patient admitted on 01/20/24 and underwent total knee ar throplasty. She tolerated the procedure well and there were no complications. Transferred to the PACU post op and later to the orthopedic floor for further care. She was given ancef for antibiotic prophylaxis. She was also given BETSY stockings, SCDs, and aspirin for DVT prophylaxis. Hemoglobin, hematocrit, and vital signs were monitored during her hospital stay and remained stable. Did not require any blood transfusions. There were no complications during her hospital stay. By post op day #1 the patient was tolerating a regular diet, pain was reasonably controlled with oral pain medicine, and she was participating in physical therapy. On post op day #1 the patient was discharged home and set up with home health care. She was given printed discharge instructions including prescriptions for extra strength tylenol, aspirin, cefadroxil, ketorolac, zofran, oxycodone, and senokot. Continue physical therapy, weight bearing as tolerated. Continue BETSY stockings. Follow up approximately 2 weeks post op or sooner if there are problems or concerns. Discharge Plan Discharge Items Patient Disposition: Home - Home Health Services Reason For Visit: RIGHT KNEE REPLACEMENT Discharge Diagnosis: ACTIVITY RECOMMENDATIONS: Diet: * You may resume previous diet. Physical Therapy: * You will go to physical therapy three times each week for four to six weeks after your surgery in order to regain your knee range of motion and to retrain your knee to work properly. * It is just as important to make sure you are getting your knee perfectly straight as it is to regain your knee bend. * Taking a pain pill an hour before therapy can help you have a more productive and comfortable therapy session. Home Exercise: * You were shown a series of exercises (heel props, heel slides, etc.) in the hospital. Do these exercises three to four times each day including the exercises you were shown in physical therapy. Walking: * Get up and walk several times each day. For the first four weeks, try not to stand or walk for more than one hour at a time. If you do stand or walk for more than one hour, you will not hurt anything, but your knee and leg will likely swell. * As you feel comfortable, you may change from the walker or crutches to a cane and then to independent walking. MEDICATIONS: New Medicine: * You will likely be taking one or more of these medications: 1. Oxycodone - A quick and shorter-acting pain medication. Take one to two tablets every six hours to lessen your pain. 2. Aspirin - Thins your blood to lessen the chance of forming a blood clot. * The most common side effects of pain medicine and iron are nausea and constipation. If nausea or constipation is too much of a problem or if you have any questions about your new medicines or doses, call [facility] at . We will try to help you manage these issues. "VERY IMPORTANT TO READ AND REVIEW" Pain: * The immediate post-operative period after knee replacement surgery is often quite painful. * You are given a prescription for pain medicine. You should take it, as directed, when you need it, especially before physical therapy and before going to bed. Pain that interferes with sleep is very common and can last several months. * You will likely need pain medicine for the first four to six weeks. It will not stop all of the pain. The pain will lessen and as you feel better, you may change to milder pain medicine such as Tylenol. * The most common side effects of pain medicine are nausea and constipation, so don't take more than you need. SPECIAL CARE INSTRUCTIONS: TEDs/Elastic Stockings: * The white elastic stockings help limit swelling and prevent blood clots from forming in your legs. The more you wear them, the more they work. * Wear them for six weeks after knee replacement surgery and four weeks after partial knee replacement. Incision Site Care: * Remove dressing postoperative day 2 and then shower. Keep direct shower pressure off the incision site. * After showering, cover carla with dry gauze and change daily or more frequently if the dressing is getting saturated with drainage. * Use the BETSY stockings to hold dressing in place. DO NOT apply tape on the skin. * May completely stop using bandage if wound is dry and no drainage * Carla are removed between 2 and 3 weeks post-op. If your follow-up appointment is made before 2 weeks, please have your appointment re- scheduled. It is too early to remove the carla. Prevention of Infection: * Take antibiotics one hour before any dental cleaning, dental work, urological procedure, gastrointestinal procedure or any invasive surgery in order to prevent your new joint from getting infected. * You may get the antibiotics from the doctor performing the procedure or you may call our office at [phone] before and we will call in a prescription to the pharmacy of your choice. Things to Watch For: * Drainage from the incision site that occurs more than one week after your surgery. * Severely increased knee/leg pain or swelling. * Increased redness at the incision site. * Fever above 102 degrees Fahrenheit. * Unusual chest pain or shortness of breath. * Unusual pain or burning with urination. Call [facility] at [phone] with any of the above problems or if you have any questions about your medicines or recovery. FOLLOW UP VISIT: Make an appointment to see your doctor for approximately two weeks after surgery for a progress check and staple removal by calling the office at [phone]. Activity: Per Instructions section Weightbearing: Full weightbearing Non-emergency contact: Surgeon Call non-emergency contact if: you have any medication questions Follow-up/Referrals: Allan Gimenez MD [Primary Care Provider] - Diet: Regular Addtl Attending Provider Instructions: ACTIVITY RECOMMENDATIONS: Diet: * You may resume previous diet. Physical Therapy: * You will go to physical therapy three times each week for four to six weeks after your surgery in order to regain your knee range of motion and to retrain your knee to work properly. * It is just as important to make sure you are getting your knee perfectly straight as it is to regain your knee bend. * Taking a pain pill an hour before therapy can help you have a more productive and comfortable therapy session. Home Exercise: * You were shown a series of exercises (heel props, heel slides, etc.) in the hospital. Do these exercises three to four times each day including the exercises you were shown in physical therapy. Walking: * Get up and walk several times each day. For the first four weeks, try not to stand or walk for more than one hour at a time. If you do stand or walk for more than one hour, you will not hurt anything, but your knee and leg will likely swell. * As you feel comfortable, you may change from the walker or crutches to a cane and then to independent walking. MEDICATIONS: New Medicine: * You will likely be taking one or more of these medications: 1. Oxycodone - A quick and shorter-acting pain medication. Take one to two tablets every six hours to lessen your pain. 2. Aspirin - Thins your blood to lessen the chance of forming a blood clot. * The most common side effects of pain medicine and iron are nausea and constipation. If nausea or constipation is too much of a problem or if you have any questions about your new medicines or doses, call [facility] at . We will try to help you manage these issues. "VERY IMPORTANT TO READ AND REVIEW" Pain: * The immediate post-operative period after knee replacement surgery is often quite painful. * You are given a prescription for pain medicine. You should take it, as directed, when you need it, especially before physical therapy and before going to bed. Pain that interferes with sleep is very common and can last several months. * You will likely need pain medicine for the first four to six weeks. It will not stop all of the pain. The pain will lessen and as you feel better, you may change to milder pain medicine such as Tylenol. * The most common side effects of pain medicine are nausea and constipation, so don't take more than you need. SPECIAL CARE INSTRUCTIONS: TEDs/Elastic Stockings: * The white elastic stockings help limit swelling and prevent blood clots from forming in your legs. The more you wear them, the more they work. * Wear them for six weeks after knee replacement surgery and four weeks after partial knee replacement. Incision Site Care: * Remove dressing postoperative day 2 and then shower. Keep direct shower pressure off the incision site. * After showering, cover carla with dry gauze and change daily or more frequently if the dressing is getting saturated with drainage. * Use the BETSY stockings to hold dressing in place. DO NOT apply tape on the skin. * May completely stop using bandage if wound is dry and no drainage * [place] are removed between 2 and 3 weeks post-op. If your follow-up appointment is made before 2 weeks, please have your appointment re- scheduled. It is too early to remove the carla. Prevention of Infection: * Take antibiotics one hour before any dental cleaning, dental work, urological procedure, gastrointestinal procedure or any invasive surgery in order to prevent your new joint from getting infected. * You may get the antibiotics from the doctor performing the procedure or you may call our office at [phone] before and we will call in a prescription to the pharmacy of your choice. Things to Watch For: * Drainage from the incision site that occurs more than one week after your surgery. * Severely increased knee/leg pain or swelling. * Increased redness at the incision site. * Fever above 102 degrees Fahrenheit. * Unusual chest pain or shortness of breath. * Unusual pain or burning with urination. Call [facility] at [phone] with any of the above problems or if you have any questions about your medicines or recovery. FOLLOW UP VISIT: Make an appointment to see your doctor for approximately two weeks after surgery for a progress check and staple removal by calling the office at [phone]. Pending Studies at Discharge: No Stand-Alone Forms: My [facility], Pain - Opioid Pain Management, Smoking Cessation Medications and DC Order Prescriptions: Continued albuterol sulfate [Ventolin HFA] 90 mcg/actuation HFA aerosol inhaler 2 puff INHALATION Q6H PRN (Reason: Shortness Of Breath) Qty: 3 3RF acetaminophen 500 mg capsule 1,000 mg PO TID 30 Days Qty: 180 0RF Rx Instructions: Take 3 times per day to lessen pain. sennosides [Senokot] 8.6 mg tablet 8.6 mg PO BID 14 Days Qty: 28 0RF Rx Instructions: Take two times a day to prevent/treat constipation acetaminophen [Tylenol Extra Strength] 500 mg tablet 1,000 mg PO TID 30 Days Qty: 180 0RF Rx Instructions: Take 3 times per day to lessen pain. ketorolac 10 mg tablet 10 mg PO Q6 5 Days Qty: 20 0RF Rx Instructions: Take 4 times per day with food for 5 days to lessen pain and swelling. ondansetron 4 mg tablet,disintegrating 4 mg PO Q8 PRN (Reason: nausea) Qty: 20 1RF Rx Instructions: Take as needed for nausea oxycodone 5 mg tablet 5 - 10 mg PO Q6 PRN (Reason: pain) Qty: 40 0RF Rx Instructions: Take as needed for pain aspirin [Sawyer Low Dose Aspirin] 81 mg tablet,delayed release (DR/EC) 81 mg PO BID 45 Days Qty: 90 0RF Rx Instructions: Take to prevent blood clots. cefadroxil 500 mg capsule 500 mg PO BID 7 Days Qty: 14 0RF Rx Instructions: Take 1 cap twice a day to prevent infection amoxicillin 500 mg tablet 2,000 mg PO ONCE Qty: 4 5RF Patient Comments: FOR DENTAL APT Rx Instructions: 4 tabs 1 hour prior to procedure Calcium 600 + D(3) 600 mg calcium- 200 unit Capsule 1 cap PO QAM No Action fluticasone propion-salmeterol [Wixela Inhub] 100-50 mcg/dose blister with device 1 inh inhalation BID Qty: 60 11RF Rx Instructions: Rinse mouth after usage. Ellames/Other Patient Handouts: DVT Post Op Prevention Admission Data Admit Date/Time: 01/20/24 12:38 Attending Provider: Kam Lopez Admit Provider: Kam Lopez Primary Care Provider: Allan Gimenez Other Providers: [facility],Home Health Other Interventions: Discharge Summary Assessment (RN) Last Done: 01/21/24 11:11
== END 2024-01-21 13:37 | disposition home health service (06) ==
LOC: ASU 08:26 → 3E 08:26
DX: M19.90 Unspecified osteoarthritis, unspecified site; Z79.899 Other long term (current) drug therapy; Z96.643 Presence of artificial hip joint, bilateral; M17.0 Bilateral primary osteoarthritis of knee; R25.1 Tremor, unspecified; J45.909 Unspecified asthma, uncomplicated; Z91.048 Other nonmedicinal substance allergy status; Z79.82 Long term (current) use of aspirin; Z88.5 Allergy status to narcotic agent